=== PATIENT | male | born 1990 | race Caucasian/White ===

== ENCOUNTER 2017-05-18 23:47 | Emergency (ER) | payer BC ==
[~2017-05-18] VITALS: Ht 182.9 cm; Wt 60.0 kg
[2017-05-19 00:12] VITALS: BP 123/64; PULSE 94; RESP 20; TEMP 98.6; O2SAT 99
[2017-05-19 01:30] LABS: AUTOMATED NEUTROPHIL # 12.9 TH/MM3 (1.8-7.7); BASOPHIL % 0.2 % (0.0-2.0); EOSINOPHIL % 0.1 % (0.0-4.0); HEMATOCRIT 48.2 % (39.0-51.0); HEMO FLAGS DIFF FINAL; LYMPH % 9.3 % (9.0-44.0); LYMPHOCYTE # 1.4 TH/MM3 (1.0-4.8); MEAN CELL VOLUME 91.7 FL (80.0-100.0); MEAN CORPUSCULAR HEMOGLOBIN 30.9 PG (27.0-34.0); MEAN CORPUSCULAR HGB CONC 33.7 % (32.0-36.0); NEUT % 87.4 % (16.0-70.0); PLATELET COUNT 281 TH/MM3 (150-450); RED BLOOD COUNT 5.25 MIL/MM3 (4.50-5.90); RED CELL DISTRIBUTION WIDTH 13.4 % (11.6-17.2); WHITE BLOOD COUNT 14.8 TH/MM3 (4.0-11.0)
[2017-05-19 01:34] LABS: AMPHETAMINE, URINE NEG (NEG); BARBITURATES, URINE NEG (NEG); COCAINE, URINE NEG (NEG)
--- NOTE | 2017-05-19 01:40 | PD ---
HPI Chief Complaint: Psychiatric Symptoms Time Seen by Provider: 01:38 Travel History International Travel<30 days: No Contact w/Intl Traveler<30days: No Traveled to known affect area: No History of Present Illness HPI Patient comes emergency Department under Foster act by police for allegedly making suicidal statements and cutting himself. He states that his girlfriend was breaking up with him taking their kids with her, which made him upset causing him to cut himself. Patient denies any homicidal or suicidal ideations. Patient denies any history of suicide attempt. Patient denies any history of cutting himself before. Patient denies any pain with this. Denies anything making it better or worse. Reports his tetanus shot is up-to-date. Denies any medical concerns at this time. Denies any chest pain, shortness of breath, fevers, abdominal pain, or numbness tingling anywhere. PFSH Past Medical History ADHD: Yes Cardiovascular Problems: Yes (PRE SVT) Psychiatric: Yes (OCD) Immunizations Current: Yes Tetanus Vaccination: Unknown Past Surgical History Cardiac Surgery: Yes (PSVT (CRYOABLATION)) Social History Alcohol Use: Yes Tobacco Use: No Substance Use: Yes (MARIJUANA RARELY) Allergies-Medications (Allergen,Severity, Reaction): Coded Allergies: No Known Allergies (Unverified , 05/19/17) Reported Meds & Prescriptions Reported Meds & Active Scripts Active No Active Prescriptions or Reported Medications Review of Systems Except as stated in HPI: all other systems reviewed are Neg Physical Exam Narrative GENERAL: Well-developed, well nourished, in no acute distress, and non-ill appearing. SKIN: Multiple superficial nonrepairable self-inflicted wounds noted volar surface right forearm. HEAD: Atraumatic. Normocephalic. EYES: Pupils equal and round. EOMI. No scleral icterus. No injection or drainage. ENT: No nasal bleeding or discharge. Mucous membranes pink and moist. NECK: Trachea midline. Supple. No nuclear rigidity. CARDIOVASCULAR: Regular rate and rhythm. No murmur appreciated. RESPIRATORY: No accessory muscle use. No respiratory distress. Clear to auscultation. Breath sounds equal bilaterally. MUSCULOSKELETAL: No obvious deformities. No clubbing. No cyanosis. No edema. Full range of motion. NEUROLOGICAL: Awake and alert. No obvious cranial nerve deficits. Motor grossly within normal limits. Normal speech. PSYCHIATRIC: Appropriate mood and affect; insight and judgment normal. Data Data Last Documented VS Vital Signs Date Time Temp Pulse Resp B/P Pulse Ox O2 Delivery O2 Flow Rate FiO2 05/19/17 00:12 98.6 94 20 123/64 99 Room Air Orders Complete Blood Count With Diff (05/19/17 01:10) Comprehensive Metabolic Panel (05/19/17 01:10) Psych Screen (05/19/17 01:10) Drug Screen, Random Urine (05/19/17 01:10) Alcohol (Ethanol) (05/19/17 01:10) Salicylates (Aspirin) (05/19/17 01:10) Tylenol (Acetaminophen) (05/19/17 01:10) Labs Laboratory Tests Test 05/19/17 05/19/17 00:30 01:15 Urine Opiates Screen NEG Urine Barbiturates Screen NEG Urine Amphetamines Screen NEG Urine Benzodiazepines Screen NEG Urine Cocaine Screen NEG Urine Cannabinoids Screen POS White Blood Count 14.8 TH/MM3 Red Blood Count 5.25 MIL/MM3 Hemoglobin 16.2 GM/DL Hematocrit 48.2 % Mean Corpuscular Volume 91.7 FL Mean Corpuscular Hemoglobin 30.9 PG Mean Corpuscular Hemoglobin 33.7 % Concent Red Cell Distribution Width 13.4 % Platelet Count 281 TH/MM3 Mean Platelet Volume 7.4 FL Neutrophils (%) (Auto) 87.4 % Lymphocytes (%) (Auto) 9.3 % Monocytes (%) (Auto) 3.0 % Eosinophils (%) (Auto) 0.1 % Basophils (%) (Auto) 0.2 % Neutrophils # (Auto) 12.9 TH/MM3 Lymphocytes # (Auto) 1.4 TH/MM3 Monocytes # (Auto) 0.4 TH/MM3 Eosinophils # (Auto) 0.0 TH/MM3 Basophils # (Auto) 0.0 TH/MM3 CBC Comment DIFF FINAL Differential Comment Sodium Level 141 MEQ/L Potassium Level 4.1 MEQ/L Chloride Level 106 MEQ/L Carbon Dioxide Level 23.2 MEQ/L Anion Gap 12 MEQ/L Blood Urea Nitrogen 8 MG/DL Creatinine 0.72 MG/DL Estimat Glomerular Filtration 131 ML/MIN Rate Random Glucose 82 MG/DL Calcium Level 8.9 MG/DL Total Bilirubin 0.3 MG/DL Aspartate Amino Transf 19 U/L (AST/SGOT) Alanine Aminotransferase 23 U/L (ALT/SGPT) Alkaline Phosphatase 86 U/L Total Protein 7.1 GM/DL Albumin 4.2 GM/DL Salicylates Level LESS THAN 1.7 MG/DL Acetaminophen Level LESS THAN 2.0 MCG/ML Ethyl Alcohol Level 19 MG/DL MDM Medical Decision Making Medical Screen Exam Complete: Yes Emergency Medical Condition: Yes Differential Diagnosis Homicidal, suicidal, laceration, abrasion, contusion, other Narrative Course Patient was seen and examined. Labs were obtained and reviewed. Patient medically cleared for further treatment and evaluation by psych. Final disposition per psych. Diagnosis Primary Impression: Deliberate self-cutting Additional Impression: Medical clearance for psychiatric admission Scripts No Active Prescriptions or Reported Meds Condition: Stable Cas Carrera May 19, 2017 01:39
[2017-05-19 01:43] LABS: ACETAMINOPHEN LESS THAN 2.0 MCG/ML (10.0-30.0); ALT (GPT) 23 U/L (12-78); ANION GAP 12 MEQ/L (5-15); AST (GOT) 19 U/L (15-37); BICARBONATE 23.2 MEQ/L (21.0-32.0); BLOOD UREA NITROGEN 8 MG/DL (7-18); CHLORIDE 106 MEQ/L (98-107); GLOMERULAR FILTRATION RATE 131 ML/MIN (>89); POTASSIUM 4.1 MEQ/L (3.5-5.1); SODIUM (NA) 141 MEQ/L (136-145)
[2017-05-19 01:45] LABS: ALKALINE PHOSPHATASE 86 U/L (45-117); TOTAL BILIRUBIN ADULT 0.3 MG/DL (0.2-1.0)
[2017-05-19 08:15] VITALS: BP 130/77; PULSE 73; RESP 16; O2SAT 97
--- NOTE | 2017-05-19 10:40 | PD.PSY.CON ---
Provisional Diagnosis Admission Date Morrill I. Adjustment disorder with depressed mood, history of OCD Morrill II. Deferred Morrill III. No significant medical history History of Present Illness Service Psychiatry Consult Requested By Primary Care Physician Unknown HPI The patient is a 27-year-old man, domicile with his girlfriend in [place], unemployed, with psychiatric history of OCD, no psychiatric admissions, no current medications, history of self cutting, no suicide attempts or significant medical history, who comes emergency Department under Foster act by police for allegedly making suicidal statements and cutting himself. He states that his girlfriend was breaking up with him taking their kids with her, which made him upset causing him to cut himself. Patient denies any homicidal or suicidal ideations. On psychiatric evaluation today patient is calm, cooperative and a good spirit. Patient says that yesterday he was frustrated and upset with his girlfriend because his giving him. He might say that he wanted to cut himself, but he never made a suicidal statement. He says that he was just trying to manipulate and to project the anger and his girlfriend. At this moment the patient denies anhedonia, he denies hopelessness , denies depression, he denies suicidal and homicidal ideation, he denies visual and auditory hallucinations. Patient does report occasional use of alcohol and marijuana. Review of Systems Constitutional: DENIES: Diaphoretic episodes, Fatigue, Fever, Weight gain, Weight loss, Chills, Dizziness, Change in appetite, Night Sweats Endocrine: DENIES: Heat/cold intolerance, Polydipsia, Polyuria, Polyphagia Eyes: DENIES: Blurred vision, Diplopia, Eye inflammation, Eye pain, Vision loss , Photosensitivity, Double Vision Ears, nose, mouth, throat: DENIES: Tinnitus, Hearing loss, Vertigo, Nasal discharge, Oral lesions, Throat pain, Hoarseness, Ear Pain, Running Nose, Epistaxis, Sinus Pain, Toothache, Odynophagia Respiratory: DENIES: Apneas, Cough, Snoring, Wheezing, Hemoptysis, Sputum production, Shortness of breath Cardiovascular: DENIES: Chest pain, Palpitations, Syncope, Dyspnea on Exertion , PND, Lower Extremity Edema, Orthopnea, Claudication Gastrointestinal: DENIES: Abdominal pain, Black stools, Bloody stools, Constipation, Diarrhea, Nausea, Vomiting, Difficulty Swallowing, Anorexia Genitourinary: DENIES: Sexual dysfunction, Urinary frequency, Urinary incontinence, Urgency, Hematuria, Dysuria, Nocturia, Penile Discharge, Testicular Pain, Testicular Swelling Musculoskeletal: DENIES: Joint pain, Muscle aches, Stiffness, Joint Swelling, Back pain, Neck pain Immunologic/allergic: DENIES: Eczema, Urticaria Neurologic: DENIES: Abnormal gait, Headache, Localized weakness, Paresthesias, Seizures, Speech Problems, Tremor, Poor Balance Psychiatric: DENIES: Anxiety, Confusion, Mood changes, Depression, Hallucinations, Agitation, Suicidal Ideation, Homicidal Ideation, Delusions Past Family Social History Coded Allergies: No Known Allergies (Unverified , 05/19/17) No Active Prescriptions or Reported Meds Family History He reports that his mother has depression Social History Patient was born and raised in [place], he lives with his girlfriend in [facility] , he has 2 kids his unemployed, his level of education is high school Patient's Strengths (min. 2) Employed Physical Exam No tremors, no EPS, no withdrawal Vital Signs Vital Signs Date Time Temp Pulse Resp B/P Pulse Ox O2 Delivery O2 Flow Rate FiO2 05/19/17 08:15 73 16 130/77 97 Room Air 05/19/17 00:12 98.6 Lab Results Labs Laboratory Tests Test 05/19/17 05/19/17 00:30 01:15 Urine Opiates Screen NEG Urine Barbiturates Screen NEG Urine Amphetamines Screen NEG Urine Benzodiazepines Screen NEG Urine Cocaine Screen NEG Urine Cannabinoids Screen POS White Blood Count 14.8 TH/MM3 Red Blood Count 5.25 MIL/MM3 Hemoglobin 16.2 GM/DL Hematocrit 48.2 % Mean Corpuscular Volume 91.7 FL Mean Corpuscular Hemoglobin 30.9 PG Mean Corpuscular Hemoglobin 33.7 % Concent Red Cell Distribution Width 13.4 % Platelet Count 281 TH/MM3 Mean Platelet Volume 7.4 FL Neutrophils (%) (Auto) 87.4 % Lymphocytes (%) (Auto) 9.3 % Monocytes (%) (Auto) 3.0 % Eosinophils (%) (Auto) 0.1 % Basophils (%) (Auto) 0.2 % Neutrophils # (Auto) 12.9 TH/MM3 Lymphocytes # (Auto) 1.4 TH/MM3 Monocytes # (Auto) 0.4 TH/MM3 Eosinophils # (Auto) 0.0 TH/MM3 Basophils # (Auto) 0.0 TH/MM3 CBC Comment DIFF FINAL Differential Comment Sodium Level 141 MEQ/L Potassium Level 4.1 MEQ/L Chloride Level 106 MEQ/L Carbon Dioxide Level 23.2 MEQ/L Anion Gap 12 MEQ/L Blood Urea Nitrogen 8 MG/DL Creatinine 0.72 MG/DL Estimat Glomerular Filtration 131 ML/MIN Rate Random Glucose 82 MG/DL Calcium Level 8.9 MG/DL Total Bilirubin 0.3 MG/DL Aspartate Amino Transf 19 U/L (AST/SGOT) Alanine Aminotransferase 23 U/L (ALT/SGPT) Alkaline Phosphatase 86 U/L Total Protein 7.1 GM/DL Albumin 4.2 GM/DL Salicylates Level LESS THAN 1.7 MG/DL Acetaminophen Level LESS THAN 2.0 MCG/ML Ethyl Alcohol Level 19 MG/DL Mental Status Examination Appearance young man, age appearing, good hygiene, calm and cooperative Speech: Unremarkable Orientation: x3 Memory: Unremarkable Thought Process: Logical Thought Content: Unremarkable Hallucination Type: None Suicidal Ideation: No Previous Suicide Attempts: No Homicidal Ideation: No Previous Homicide Attempts: No Judgment: WNL Affect: Good Mood: Appropriate Motor Activity: Normal gait Assessment & Plan Problem List: (1) Adjustment disorder with depressed mood Assessment & Plan: On psychiatric evaluation today patient does not present any evidence of depression, anxiety, tor or psychosis. Patient denies suicidal and homicidal ideation, he denies visual and auditory hallucinations. Recent self cutting statement to his girlfriend in the context of frustration and recent breakup as per patient was done with the purpose of manipulation and projecting anger. Patient has a history of self cutting behavior which seems to be consistent with underlying personality pathology. No admission indicated at this moment. Support, motivation psycho education provided. Foster act will be lifted.. ICD Code: F43.21 Assessment & Plan Estimated LOS: Herve Shipley MD May 19, 2017 10:40
== END 2017-05-19 10:58 | disposition home or self-care (01) ==
LOC: NEPD 23:47
DX: S51.811A Laceration without foreign body of right forearm, initial encounter (principal); X78.9XXA Intentional self-harm by unspecified sharp object, initial encounter
CPT/HCPCS: 80053; 80307; 85025; 99284

== ENCOUNTER 2018-04-16 15:51 | Inpatient (IN) | payer SELFPAY ==
[~2018-04-16] VITALS: Ht 182.9 cm; Wt 67.0 kg
[2018-04-16 16:00] VITALS: BP 123/58; PULSE 103; RESP 20; TEMP 99.9; O2SAT 98
[2018-04-16] MEDS ORDERED: PIPERACIL-TAZO 4.5 GM PREMIX 100 ML IV STA (16:24)
[2018-04-16] MEDS ORDERED: VANCOMYCIN INJ 1,000 MG in SODIUM CHLOR 0.9% 250 ML INJ 250 ML IV STA (16:24)
[2018-04-16] MEDS ORDERED: SODIUM CHLOR 0.9% 1000 ML INJ 1,000 ML IV ONE ×2 (16:24)
[2018-04-16] MEDS ORDERED: ACETAMINOPHEN 325 MG TAB PO ONE (16:30)
--- NOTE | 2018-04-16 16:33 | PD ---
HPI Chief Complaint: Skin Problem Time Seen by Provider: 16:16 Travel History International Travel<30 days: No Contact w/Intl Traveler<30days: No Traveled to known affect area: No History of Present Illness HPI The patient is a 27-year-old male who presents to the emergency department via private vehicle for right hand swelling. 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 The patient does note multiple sores of the extensor surface of the hand over the MCPs as well as the base of the right thumb. He now notes increased swelling to the right hand with erythema no streaks of the right upper extremity to the right axilla. He does complain of swelling under the right axilla and over the lateral aspect of the right neck. He does note subjective fever. He denies any history of MRSA, IV drug use, HIV, or diabetes. Symptoms are moderate. There are no current alleviating factors. The patient cannot recall his last tetanus shot. The patient is left-hand dominant. PFSH Past Medical History ADHD: Yes Cardiovascular Problems: Yes (PRE SVT) Psychiatric: Yes (OCD) Immunizations Current: Yes Past Surgical History Narrative Surgical Cardiac ablation, removal of testicular appendix, tympanostomy tubes Cardiac Surgery: Yes (PSVT (CRYOABLATION)) Social History Alcohol Use: Yes Tobacco Use: No Substance Use: Yes (MARIJUANA, KRATOM) Allergies-Medications (Allergen,Severity, Reaction): Coded Allergies: No Known Allergies (Verified Adverse Reaction, Unknown, 04/16/18) Reported Meds & Prescriptions Reported Meds & Active Scripts Active No Active Prescriptions or Reported Medications Review of Systems Except as stated in HPI: all other systems reviewed are Neg General / Constitutional: Positive: Fever HENT: Positive: Neck Pain Cardiovascular: No: Chest Pain or Discomfort Respiratory: No: Shortness of Breath Gastrointestinal: No: Nausea, Vomiting, Abdominal Pain Genitourinary: No: Dysuria Musculoskeletal: Positive: Limited ROM, Edema, Pain Skin: Positive Other (As noted in the history of present illness) Neurologic: No: Paresthesia, Sensory Disturbance Physical Exam Narrative GENERAL: Awake, alert, pleasant 27-year-old male who appears his stated age and is in no acute respiratory distress. SKIN: Focused skin assessment warm/dry. Multiple open skin wounds on the extensor surface of the right hand of the MCP. HEAD: Atraumatic. Normocephalic. EYES: Pupils equal and round. No scleral icterus. No injection or drainage. ENT: No nasal bleeding or discharge. Mucous membranes pink and moist. NECK: Trachea midline. No JVD. Lymphadenopathy noted behind the right sternocleidomastoid which is tender to palpation. CARDIOVASCULAR: Regular, tachycardic with a heart rate 105. RESPIRATORY: No accessory muscle use. Clear to auscultation. Breath sounds equal bilaterally. GASTROINTESTINAL: Abdomen soft, non-tender, nondistended. Hepatic and splenic margins not palpable. MUSCULOSKELETAL: The right hand is swollen compared to the left. The patient does have multiple skin lesions on extensor surface of the right hand and the base of the right thumb with erythema, there is lymphadenitis noted of the right extremity to the axilla. There is right epitrochlear lymphadenopathy and right axillary lymphadenopathy noted and palpated. Positive right radial pulse. Limited range of motion of the right hand secondary to edema and pain. NEUROLOGICAL: Awake and alert. No obvious cranial nerve deficits. Motor grossly within normal limits. Normal speech. PSYCHIATRIC: Appropriate mood and affect; insight and judgment normal. Data Data Last Documented VS Vital Signs Date Time Temp Pulse Resp B/P (MAP) Pulse Ox O2 Delivery O2 Flow Rate FiO2 04/16/18 16:00 99.9 103 20 123/58 (79) 98 Orders Orders Sepsis Workup Initiated (04/16/18 ) Complete Blood Count With Diff (04/16/18 16:24) Comprehensive Metabolic Panel (04/16/18 16:24) Lactic Acid Sepsis Protocol (04/16/18 16:24) Urinalysis - C+S If Indicated (04/16/18 16:24) Blood Culture (04/16/18 16:24) Blood Glucose (04/16/18 16:24) Ecg Monitoring (04/16/18 16:24) Iv Access Insert/Monitor (04/16/18 16:24) Oximetry (04/16/18 16:24) Oxygen Administration (04/16/18 16:24) Acetaminophen (Tylenol) (04/16/18 16:30) Piperacil-Tazo 4.5 Gm Premix (Zosyn 4.5 (04/16/18 16:24) Vancomycin Inj (Vancomycin Inj) (04/16/18 16:24) Sodium Chlor 0.9% 1000 Ml Inj (Ns 1000 M (04/16/18 16:24) Sodium Chlor 0.9% 1000 Ml Inj (Ns 1000 M (04/16/18 16:24) MDM Medical Decision Making Medical Screen Exam Complete: Yes Emergency Medical Condition: Yes Medical Record Reviewed: Yes Differential Diagnosis Differential diagnosis includes lymphadenitis, lymphangitis, cellulitis, infected wound, bacteremia, septicemia, abscess, cellulitis. Narrative Course IV was established, labs are drawn and sent, and the patient was placed on cardiac telemetry monitoring and continuous pulse oximetry monitoring. Blood cultures were sent to lab. CBC and lactic acid were sent to lab. The patient was then administered Zosyn and vancomycin. The patient was administered 2 L of IV fluids. It appears the patient has infected wounds to the right hand with cellulitis and secondary lymphangitis/lymphadenitis. The patient was signed out to the oncoming physician at 5 PM. Diagnosis Primary Impression: Cellulitis Qualified Codes: L03.113 - Cellulitis of right upper limb Additional Impression: Lymphadenitis Admitting Information Admitting Physician Requests: Admit Scripts No Active Prescriptions or Reported Meds Condition: Stable Edgar Valverde MD Apr 16, 2018 16:33
[2018-04-16 16:45] VITALS: BP 120/56; PULSE 89; RESP 18; O2SAT 100
[2018-04-16 17:30] LABS: AUTOMATED NEUTROPHIL # 16.3 TH/MM3 (1.8-7.7); BASOPHIL % 0.1 % (0.0-2.0); HEMATOCRIT 43.1 % (39.0-51.0); HEMOGLOBIN 14.3 GM/DL (13.0-17.0); LYMPH % 3.3 % (9.0-44.0); LYMPHOCYTE # 0.6 TH/MM3 (1.0-4.8); MEAN CELL VOLUME 92.5 FL (80.0-100.0); MEAN CORPUSCULAR HEMOGLOBIN 30.7 PG (27.0-34.0); MEAN CORPUSCULAR HGB CONC 33.2 % (32.0-36.0); MEAN PLATELET VOLUME 7.8 FL (7.0-11.0); MONO % 7.9 % (0.0-8.0); MONOCYTE # 1.4 TH/MM3 (0-0.9); NEUT % 88.7 % (16.0-70.0); PLATELET COUNT 199 TH/MM3 (150-450); RED BLOOD COUNT 4.66 MIL/MM3 (4.50-5.90); RED CELL DISTRIBUTION WIDTH 14.1 % (11.6-17.2); WHITE BLOOD COUNT 18.3 TH/MM3 (4.0-11.0)
[2018-04-16 17:46] LABS: ALBUMIN 3.9 GM/DL (3.4-5.0); ALT (GPT) 23 U/L (12-78); AST (GOT) 18 U/L (15-37); BICARBONATE 22.6 MEQ/L (21.0-32.0); BLOOD UREA NITROGEN 7 MG/DL (7-18); CALCIUM 8.9 MG/DL (8.5-10.1); CHLORIDE 103 MEQ/L (98-107); GLOMERULAR FILTRATION RATE 116 ML/MIN (>89); GLUCOSE,RANDOM 98 MG/DL (74-106); SODIUM (NA) 137 MEQ/L (136-145)
[2018-04-16 17:49] LABS: ALKALINE PHOSPHATASE 104 U/L (45-117); TOTAL BILIRUBIN ADULT 0.5 MG/DL (0.2-1.0)
[2018-04-16 18:10] LABS: BACTERIA, URINE RARE /hpf; BILIRUBIN, URINE NEG (NEG); BLOOD, URINE NEG (NEG); GLUCOSE,URINE NEG (NEG); HYALINE CAST, URINE 4 /lpf (RARE); KETONE, URINE TRACE mg/dL (NEG); MUCUS URINE FEW /lpf (OCC); NITRITE,URINE NEG (NEG); URINE COLOR YELLOW (YELLW/STRAW); URINE LEUKOCYTE ESTERASE NEG (NEG)
[2018-04-16 18:16] VITALS: PULSE 89; RESP 16; TEMP 99.4; O2SAT 98
[2018-04-16] MEDS ORDERED: SENNOSIDES 8.6 MG TAB PO PRN (18:45)
[2018-04-16] MEDS ORDERED: MAGNESIUM HYDROXIDE SUSP 30 ML CUP PO PRN (18:45)
[2018-04-16] MEDS ORDERED: BISACODYL 10 MG SUPP RECTAL PRN (18:45)
[2018-04-16] MEDS ORDERED: NALOXONE HCL 0.4 MG/ML AMP IV PUSH PRN (18:45)
[2018-04-16] MEDS ORDERED: Vancomycin Consult Pharmacy 1 EA OTHER SCH (18:45)
[2018-04-16] MEDS ORDERED: LACTULOSE SYRUP 20 GM/30 ML CUP PO PRN (18:45)
[2018-04-16] MEDS ORDERED: SODIUM CHLORIDE 0.9% FLUSH 10 ML FLUSH IV FLUSH PRN (18:45)
--- NOTE | 2018-04-16 19:24 | PD ---
Data Data Last Documented VS Vital Signs Date Time Temp Pulse Resp B/P (MAP) Pulse Ox O2 Delivery O2 Flow Rate FiO2 04/16/18 18:16 99.4 89 16 98 Room Air Orders Orders Sepsis Workup Initiated (04/16/18 ) Complete Blood Count With Diff (04/16/18 16:24) Comprehensive Metabolic Panel (04/16/18 16:24) Lactic Acid Sepsis Protocol (04/16/18 16:24) Urinalysis - C+S If Indicated (04/16/18 16:24) Blood Culture (04/16/18 16:24) Blood Glucose (04/16/18 16:24) Ecg Monitoring (04/16/18 16:24) Iv Access Insert/Monitor (04/16/18 16:24) Oximetry (04/16/18 16:24) Oxygen Administration (04/16/18 16:24) Acetaminophen (Tylenol) (04/16/18 16:30) Piperacil-Tazo 4.5 Gm Premix (Zosyn 4.5 (04/16/18 16:24) Vancomycin Inj (Vancomycin Inj) (04/16/18 16:24) Sodium Chlor 0.9% 1000 Ml Inj (Ns 1000 M (04/16/18 16:24) Sodium Chlor 0.9% 1000 Ml Inj (Ns 1000 M (04/16/18 16:24) Urine Culture (04/16/18 17:00) Admit Order (Ed Use Only) (04/16/18 ) Admit To Inpatient (04/16/18 ) Vital Signs (Adult) Q4H (04/16/18 18:40) Activity Oob Ad Francheska (04/16/18 18:40) Diet Npo (04/16/18 Dinner) Sodium Chlor 0.9% 1000 Ml Inj (Ns 1000 M (04/16/18 18:40) Sodium Chloride 0.9% Flush (Ns Flush) (04/16/18 18:45) Sodium Chloride 0.9% Flush (Ns Flush) (04/16/18 21:00) Comprehensive Metabolic Panel (04/17/18 06:00) Complete Blood Count With Diff (04/17/18 06:00) Scd Bilateral/Knee High TORIBIO.BID (04/16/18 18:40) Naloxone Inj (Narcan Inj) (04/16/18 18:45) Magnesium Hydroxide Liq (Milk Of Magnesi (04/16/18 18:45) Sennosides (Senokot) (04/16/18 18:45) Bisacodyl Supp (Dulcolax Supp) (04/16/18 18:45) Lactulose Liq (Lactulose Liq) (04/16/18 18:45) Inpatient Certification (04/16/18 ) Vancomycin Consult Pharmacy (Vancomycin (04/16/18 18:45) Piperacil-Tazo 3.375 Gm Premix (Zosyn 3. (04/16/18 18:45) Consult Infectious Disease (04/16/18 ) Drug Screen, Random Urine (04/16/18 18:42) Labs Laboratory Tests Test 04/16/18 17:00 White Blood Count 18.3 TH/MM3 Red Blood Count 4.66 MIL/MM3 Hemoglobin 14.3 GM/DL Hematocrit 43.1 % Mean Corpuscular Volume 92.5 FL Mean Corpuscular Hemoglobin 30.7 PG Mean Corpuscular Hemoglobin Concent 33.2 % Red Cell Distribution Width 14.1 % Platelet Count 199 TH/MM3 Mean Platelet Volume 7.8 FL Neutrophils (%) (Auto) 88.7 % Lymphocytes (%) (Auto) 3.3 % Monocytes (%) (Auto) 7.9 % Eosinophils (%) (Auto) 0.0 % Basophils (%) (Auto) 0.1 % Neutrophils # (Auto) 16.3 TH/MM3 Lymphocytes # (Auto) 0.6 TH/MM3 Monocytes # (Auto) 1.4 TH/MM3 Eosinophils # (Auto) 0.0 TH/MM3 Basophils # (Auto) 0.0 TH/MM3 CBC Comment DIFF FINAL Differential Comment Urine Color YELLOW Urine Turbidity CLEAR Urine pH 6.0 Urine Specific Prosser 1.016 Urine Protein NEG mg/dL Urine Glucose (UA) NEG mg/dL Urine Ketones TRACE mg/dL Urine Occult Blood NEG Urine Nitrite NEG Urine Bilirubin NEG Urine Urobilinogen 2.0 mg/dL Urine Leukocyte Esterase NEG Urine RBC 3 /hpf Urine WBC 1 /hpf Urine Bacteria RARE /hpf Urine Hyaline Casts 4 /lpf Urine Mucus FEW /lpf Microscopic Urinalysis Comment CATH-CULTURE IND Blood Urea Nitrogen 7 MG/DL Creatinine 0.80 MG/DL Random Glucose 98 MG/DL Total Protein 7.0 GM/DL Albumin 3.9 GM/DL Calcium Level 8.9 MG/DL Alkaline Phosphatase 104 U/L Aspartate Amino Transf (AST/SGOT) 18 U/L Alanine Aminotransferase (ALT/SGPT) 23 U/L Total Bilirubin 0.5 MG/DL Sodium Level 137 MEQ/L Potassium Level 3.4 MEQ/L Chloride Level 103 MEQ/L Carbon Dioxide Level 22.6 MEQ/L Anion Gap 11 MEQ/L Estimat Glomerular Filtration Rate 116 ML/MIN Lactic Acid Level 1.3 mmol/L MDM Supervised Visit with NIKOLE: No Narrative Course 27-year-old man with infection the hand with lymphangitis spreading up all the way to the axilla with lymphadenitis associated. Patient with tachycardia meets criteria for sepsis. Will be admitted for IV antibiotics. Diagnosis Primary Impression: Cellulitis Qualified Codes: L03.113 - Cellulitis of right upper limb Additional Impression: Lymphadenitis Scripts No Active Prescriptions or Reported Meds Condition: Stable Antony Mercer MD Apr 16, 2018 19:24
--- NOTE | 2018-04-16 19:56 | HHI.HP ---
[facility] No Primary Care Physician Admission Diagnosis sepsis, cellulitis Diagnoses: Travel History International Travel<30 Days: No Contact w/Intl Traveler <30 Da: No Traveled to Known Affected Are: No History of Present Illness 27-year-old male with no significant past medical history presents the emergency department for evaluation of swelling of his right hand. The patient reports that approximately 3 days ago he burned himself on the oven at work. He states that since that time his hand has become more red and swollen and now has red streaks going up his arm towards his axilla. He endorses subjective, severe fever/chills. No chest pain or shortness of breath. No cough. No abdominal pain. No nausea/vomiting/diarrhea. Review of Systems Except as stated in HPI: all other systems reviewed are Neg Past Family Social History Past Medical History None Past Surgical History Cardiac ablation for unspecified tachycardia Reported Medications Reported Meds & Active Scripts Active No Active Prescriptions or Reported Medications Allergies: Coded Allergies: No Known Allergies (Verified Allergy, Unknown, 04/16/18) Family History Negative for CAD/DM Social History Smokes approximately 1 pack per day. Occasional alcohol. Positive marijuana. Denies all other illicit drugs. Physical Exam Vital Signs Vital Signs Date Time Temp Pulse Resp B/P (MAP) Pulse Ox O2 Delivery O2 Flow Rate FiO2 04/16/18 18:16 99.4 89 16 98 Room Air 04/16/18 16:45 100 Room Air 04/16/18 16:45 89 18 120/56 (77) 100 Room Air 04/16/18 16:45 89 18 120/56 (77) 100 Room Air 04/16/18 16:00 99.9 103 20 123/58 (79) 98 Physical Exam GENERAL: male lying in bed SKIN: Significant edema and erythema of the right hand worse on the dorsal aspect. 3 areas of first-degree burn on the knuckles. Lymphangitis up the arm with axillary lymphadenopathy. HEAD: Atraumatic. Normocephalic. No temporal or scalp tenderness. EYES: Pupils equal round and reactive. Extraocular motions intact. No scleral icterus. No injection or drainage. ENT: Nose without bleeding, purulent drainage or septal hematoma. Throat without erythema, tonsillar hypertrophy or exudate. Uvula midline. Airway patent. NECK: Trachea midline. No JVD or lymphadenopathy. Supple, nontender, no meningeal signs. CARDIOVASCULAR: Regular rate and rhythm without murmurs, gallops, or rubs. RESPIRATORY: Clear to auscultation. Breath sounds equal bilaterally. No wheezes , rales, or rhonchi. GASTROINTESTINAL: Abdomen soft, non-tender, nondistended. No hepato-splenomegaly , or palpable masses. No guarding. MUSCULOSKELETAL: Extremities without clubbing, cyanosis, or edema. No joint tenderness, effusion, or edema noted. No calf tenderness. NEUROLOGICAL: Awake and alert. Cranial nerves II through XII intact. Motor and sensory grossly within normal limits. Normal speech. Laboratory Laboratory Tests Test 04/16/18 17:00 White Blood Count 18.3 Red Blood Count 4.66 Hemoglobin 14.3 Hematocrit 43.1 Mean Corpuscular Volume 92.5 Mean Corpuscular Hemoglobin 30.7 Mean Corpuscular Hemoglobin Concent 33.2 Red Cell Distribution Width 14.1 Platelet Count 199 Mean Platelet Volume 7.8 Neutrophils (%) (Auto) 88.7 Lymphocytes (%) (Auto) 3.3 Monocytes (%) (Auto) 7.9 Eosinophils (%) (Auto) 0.0 Basophils (%) (Auto) 0.1 Neutrophils # (Auto) 16.3 Lymphocytes # (Auto) 0.6 Monocytes # (Auto) 1.4 Eosinophils # (Auto) 0.0 Basophils # (Auto) 0.0 CBC Comment DIFF FINAL Differential Comment Urine Color YELLOW Urine Turbidity CLEAR Urine pH 6.0 Urine Specific [place] 1.016 Urine Protein NEG Urine Glucose (UA) NEG Urine Ketones TRACE Urine Occult Blood NEG Urine Nitrite NEG Urine Bilirubin NEG Urine Urobilinogen 2.0 Urine Leukocyte Esterase NEG Urine RBC 3 Urine WBC 1 Urine Bacteria RARE Urine Hyaline Casts 4 Urine Mucus FEW Microscopic Urinalysis Comment CATH-CULTURE IND Blood Urea Nitrogen 7 Creatinine 0.80 Random Glucose 98 Total Protein 7.0 Albumin 3.9 Calcium Level 8.9 Alkaline Phosphatase 104 Aspartate Amino Transf (AST/SGOT) 18 Alanine Aminotransferase (ALT/SGPT) 23 Total Bilirubin 0.5 Sodium Level 137 Potassium Level 3.4 Chloride Level 103 Carbon Dioxide Level 22.6 Anion Gap 11 Estimat Glomerular Filtration Rate 116 Lactic Acid Level 1.3 Date/Time Source Procedure Growth Status 04/16/18 17:00 Blood Peripheral Aerobic Blood Culture Pending Received 04/16/18 17:00 Blood Peripheral Anaerobic Blood Culture Pending Received 04/16/18 17:00 Urine Catheterized Urine Urine Culture Pending Received Result Diagram: 04/16/18 1700 04/16/18 1700 Caprini VTE Risk Assessment Caprini VTE Risk Assessment: No/Low Risk (score <= 1) Caprini Risk Assessment Model Point Value = 1 Point Value = 2 Point Value = 3 Point Value = 5 Age 41-60 Minor surgery BMI > 25 kg/m2 Swollen legs Varicose veins or History of unexplained or recurrent spontaneous Oral contraceptives or hormone replacement Sepsis (< 1 month) Serious lung disease, including pneumonia (< 1 month) Abnormal pulmonary function Acute myocardial infarction Congestive heart failure (< 1 month) History of inflammatory bowel disease Medical patient at bed rest Age 61-74 Arthroscopic surgery Major open surgery (> 45 min) Laparoscopic surgery (> 45 min) Malignancy Confined to bed (> 72 hours) Immobilizing plaster cast Central venous access Age >= 75 History of VTE Family history of VTE Factor V Leiden Prothrombin [id number] Lupus anticoagulant Anticardiolipin antibodies Elevated serum homocysteine Heparin-induced thrombocytopenia Other congenital or acquired thrombophilia Stroke (< 1 month) Elective arthroplasty Hip, pelvis, or leg fracture Acute spinal cord injury (< 1 month) Prophylaxis Regimen Total Risk Factor Score Risk Level Prophylaxis Regimen 0-1 Low Early ambulation 2 Moderate Order ONE of the following: *Sequential Compression Device (SCD) *Heparin 5000 units SQ BID 3-4 Higher Order ONE of the following medications: *Heparin 5000 units SQ TID *Enoxaparin/Lovenox 40 mg SQ daily (WT < 150 kg, CrCl > 30 mL/min) *Enoxaparin/Lovenox 30 mg SQ daily (WT < 150 kg, CrCl > 10-29 mL/min) *Enoxaparin/Lovenox 30 mg SQ BID (WT < 150 kg, CrCl > 30 mL/min) AND/OR *Sequential Compression Device (SCD) 5 or more Highest Order ONE of the following medications: *Heparin 5000 units SQ TID (Preferred with Epidurals) *Enoxaparin/Lovenox 40 mg SQ daily (WT < 150 kg, CrCl > 30 mL/min) *Enoxaparin/Lovenox 30 mg SQ daily (WT < 150 kg, CrCl > 10-29 mL/min) *Enoxaparin/Lovenox 30 mg SQ BID (WT < 150 kg, CrCl > 30 mL/min) AND *Sequential Compression Device (SCD) Assessment and Plan Assessment and Plan Assessment/plan: 1. Cellulitis/lymphangitis/sepsis Blood cultures pending Vancomycin/Zosyn Infectious disease consulted, appreciate recommendations 2. Hypokalemia Patient with mild hypokalemia Status post p.o. supplementation Monitor BMP FEN Regular diet Electrolytes: As above NS at 100 cc/hour Physician Certification 2 Midnight Certification Type: Admission for Inpatient Services Order for Inpatient Services The services are ordered in accordance with Medicare regulations or non- Medicare payer requirements, as applicable. In the case of services not specified as inpatient-only, they are appropriately provided as inpatient services in accordance with the 2-midnight benchmark. Estimated LOS (days): 2 2 days is the estimated time the patient will need to remain in the hospital, assuming treatment plan goals are met and no additional complications. Post-Hospital Plan: Not yet determined Hafsa Hussein MD Apr 16, 2018 19:56
[2018-04-16] MEDS ORDERED: POTASSIUM CHLORIDE 20 MEQ CONTROLLED RELEASE TAB PO ONE (20:00)
[2018-04-16 20:40] VITALS: BP 131/65; PULSE 88; RESP 18; TEMP 100; O2SAT 97
[2018-04-16] MEDS: oxyCODONE/ACETAMINOPHEN 5 MG/325 MG TAB PO PRN (23:16)
[2018-04-16] MEDS: PIPERACIL-TAZO 3.375 GM PREMIX 50 ML IV SCH (23:22)
[2018-04-16] MEDS: SODIUM CHLOR 0.9% 1000 ML INJ 1,000 ML IV SCH (23:22)
[2018-04-16] MEDS: SODIUM CHLORIDE 0.9% FLUSH 10 ML FLUSH IV FLUSH SCH (23:22)
[2018-04-17] VITALS: BP 142/60; PULSE 92; RESP 19; TEMP 99.1; O2SAT 98
[2018-04-17] MEDS ORDERED: VANCOMYCIN 1,000 MG/NS 250 ML IV ONE ×4 (01:00→09:00)
[2018-04-17 04:00] VITALS: BP 127/70; PULSE 64; RESP 16; TEMP 98; O2SAT 97
[2018-04-17] MEDS: SODIUM CHLOR 0.9% 1000 ML INJ 1,000 ML IV SCH ×3 (04:40→12:57)
[2018-04-17] MEDS: PIPERACIL-TAZO 3.375 GM PREMIX 50 ML IV SCH ×4 (05:20→21:45)
[2018-04-17 07:49] VITALS: BP 112/59; PULSE 73; RESP 16; TEMP 98.6; O2SAT 98
[2018-04-17] MEDS: oxyCODONE/ACETAMINOPHEN 5 MG/325 MG TAB PO PRN (07:51)
[2018-04-17] MEDS: SODIUM CHLORIDE 0.9% FLUSH 10 ML FLUSH IV FLUSH SCH ×3 (07:52→20:30)
[2018-04-17 08:20] LABS: BASOPHIL % 0.2 % (0.0-2.0); EOSINOPHIL # 0.1 TH/MM3 (0-0.4); EOSINOPHIL % 0.7 % (0.0-4.0); HEMATOCRIT 40.9 % (39.0-51.0); HEMOGLOBIN 13.4 GM/DL (13.0-17.0); LYMPH % 7.6 % (9.0-44.0); MEAN CELL VOLUME 91.8 FL (80.0-100.0); MEAN CORPUSCULAR HEMOGLOBIN 30.2 PG (27.0-34.0); MEAN CORPUSCULAR HGB CONC 32.9 % (32.0-36.0); MEAN PLATELET VOLUME 8.2 FL (7.0-11.0); MONO % 8.2 % (0.0-8.0); MONOCYTE # 1.1 TH/MM3 (0-0.9); NEUT % 83.3 % (16.0-70.0); PLATELET COUNT 185 TH/MM3 (150-450); RED BLOOD COUNT 4.45 MIL/MM3 (4.50-5.90); RED CELL DISTRIBUTION WIDTH 14.1 % (11.6-17.2); WHITE BLOOD COUNT 13.2 TH/MM3 (4.0-11.0)
[2018-04-17 08:51] LABS: ALBUMIN 3.1 GM/DL (3.4-5.0); AST (GOT) 22 U/L (15-37); BICARBONATE 19.6 MEQ/L (21.0-32.0); BLOOD UREA NITROGEN 6 MG/DL (7-18); CALCIUM 8.6 MG/DL (8.5-10.1); CHLORIDE 111 MEQ/L (98-107); CREATININE 0.62 MG/DL (0.60-1.30); GLOMERULAR FILTRATION RATE 156 ML/MIN (>89); GLUCOSE,RANDOM 100 MG/DL (74-106); SODIUM (NA) 141 MEQ/L (136-145)
[2018-04-17 08:54] LABS: ALKALINE PHOSPHATASE 115 U/L (45-117); ALT (GPT) 42 U/L (12-78); TOTAL BILIRUBIN ADULT 0.8 MG/DL (0.2-1.0); TOTAL PROTEIN 5.9 GM/DL (6.4-8.2)
--- NOTE | 2018-04-17 12:09 | HHI.PR ---
Subjective Remarks 27-year-old male with no significant past medical history presents the emergency department for evaluation of swelling of his right hand. The patient reports that approximately 3 days ago he burned himself on the oven at work. He states that since that time his hand has become more red and swollen and now has red streaks going up his arm towards his axilla. He endorses subjective, severe fever/chills. No chest pain or shortness of breath. No cough. No abdominal pain. No nausea/vomiting/diarrhea. 620 COMPLAINS OF PAIN AND SWELLING IN RIGHT HAND DW RN AND PT ID CONSULT MAY NEED HAND SURGERY CONSULT PAIN CONTROL Objective Vitals Vital Signs Date Time Temp Pulse Resp B/P (MAP) Pulse Ox O2 Delivery O2 Flow Rate FiO2 04/17/18 07:49 98.6 73 16 112/59 (76) 98 04/17/18 04:00 98.0 64 16 127/70 (89) 97 04/17/18 00:16 18 04/17/18 00:00 99.1 92 19 142/60 (87) 98 04/16/18 20:40 100.0 88 18 131/65 (87) 97 04/16/18 20:31 04/16/18 18:16 99.4 89 16 98 Room Air 04/16/18 16:45 100 Room Air 04/16/18 16:45 89 18 120/56 (77) 100 Room Air 04/16/18 16:45 89 18 120/56 (77) 100 Room Air 04/16/18 16:00 99.9 103 20 123/58 (79) 98 I/O 04/16/18 04/16/18 04/16/18 04/17/18 04/17/18 04/17/18 07:00 15:00 23:00 07:00 15:00 23:00 Intake Total 2350 ml 420 ml Output Total 300 ml Balance 2350 ml 120 ml Intake Oral 420 ml IV Total 2350 ml Output Urine Total 300 ml # Bowel Movements 1 Result Diagram: 04/17/18 0710 04/17/18 0710 Other Results Laboratory Tests Test 04/16/18 17:00 04/17/18 07:10 White Blood Count 18.3 TH/MM3 13.2 TH/MM3 Red Blood Count 4.66 MIL/MM3 4.45 MIL/MM3 Hemoglobin 14.3 GM/DL 13.4 GM/DL Hematocrit 43.1 % 40.9 % Mean Corpuscular Volume 92.5 FL 91.8 FL Mean Corpuscular Hemoglobin 30.7 PG 30.2 PG Mean Corpuscular Hemoglobin Concent 33.2 % 32.9 % Red Cell Distribution Width 14.1 % 14.1 % Platelet Count 199 TH/MM3 185 TH/MM3 Mean Platelet Volume 7.8 FL 8.2 FL Neutrophils (%) (Auto) 88.7 % 83.3 % Lymphocytes (%) (Auto) 3.3 % 7.6 % Monocytes (%) (Auto) 7.9 % 8.2 % Eosinophils (%) (Auto) 0.0 % 0.7 % Basophils (%) (Auto) 0.1 % 0.2 % Neutrophils # (Auto) 16.3 TH/MM3 11.0 TH/MM3 Lymphocytes # (Auto) 0.6 TH/MM3 1.0 TH/MM3 Monocytes # (Auto) 1.4 TH/MM3 1.1 TH/MM3 Eosinophils # (Auto) 0.0 TH/MM3 0.1 TH/MM3 Basophils # (Auto) 0.0 TH/MM3 0.0 TH/MM3 CBC Comment DIFF FINAL DIFF FINAL Differential Comment Urine Color YELLOW Urine Turbidity CLEAR Urine pH 6.0 Urine Specific [place] 1.016 Urine Protein NEG mg/dL Urine Glucose (UA) NEG mg/dL Urine Ketones TRACE mg/dL Urine Occult Blood NEG Urine Nitrite NEG Urine Bilirubin NEG Urine Urobilinogen 2.0 mg/dL Urine Leukocyte Esterase NEG Urine RBC 3 /hpf Urine WBC 1 /hpf Urine Bacteria RARE /hpf Urine Hyaline Casts 4 /lpf Urine Mucus FEW /lpf Microscopic Urinalysis Comment CATH-CULTURE IND Blood Urea Nitrogen 7 MG/DL 6 MG/DL Creatinine 0.80 MG/DL 0.62 MG/DL Random Glucose 98 MG/DL 100 MG/DL Total Protein 7.0 GM/DL 5.9 GM/DL Albumin 3.9 GM/DL 3.1 GM/DL Calcium Level 8.9 MG/DL 8.6 MG/DL Alkaline Phosphatase 104 U/L 115 U/L Aspartate Amino Transf (AST/SGOT) 18 U/L 22 U/L Alanine Aminotransferase (ALT/SGPT) 23 U/L 42 U/L Total Bilirubin 0.5 MG/DL 0.8 MG/DL Sodium Level 137 MEQ/L 141 MEQ/L Potassium Level 3.4 MEQ/L 3.8 MEQ/L Chloride Level 103 MEQ/L 111 MEQ/L Carbon Dioxide Level 22.6 MEQ/L 19.6 MEQ/L Anion Gap 11 MEQ/L 10 MEQ/L Estimat Glomerular Filtration Rate 116 ML/MIN 156 ML/MIN Lactic Acid Level 1.3 mmol/L Objective Remarks GENERAL: Awake alert and oriented 3 talkative and cooperative SKIN: Warm and dry. Tenderness to right hand with swelling HEAD: Atraumatic. Normocephalic. EYES: Pupils equal and round. No scleral icterus. No injection or drainage. Extraocular muscles intact ENT: No nasal bleeding or discharge. Mucous membranes pink and moist. Tongue is midline NECK: Trachea midline. No JVD. Supple CARDIOVASCULAR: Regular rate and rhythm. S1-S2 no S3 or S4 RESPIRATORY: No accessory muscle use. Clear to auscultation. Breath sounds equal bilaterally. GASTROINTESTINAL: Abdomen soft, non-tender, nondistended. Hepatic and splenic margins not palpable. MUSCULOSKELETAL: Extremities without clubbing, cyanosis, or edema. No obvious deformities. NEUROLOGICAL: Awake and alert. No obvious cranial nerve deficits. Motor grossly within normal limits. Five out of 5 muscle strength in the arms and legs. Normal speech. Right hand is quite swollen tender decreased range of motion PSYCHIATRIC: Appropriate mood and affect; insight and judgment normal. Medications and IVs Current Medications Acetaminophen (Tylenol) 650 mg ONCE ONCE PO Last administered on 04/16/18 17: 05; Start 04/16/18 at 16:30; Stop 04/16/18 at 16:31; Status DC Piperacillin Sod/ Tazobactam Sod 100 ml @ 200 mls/hr ONCE STAT IV Last administered on 04/16/18 17:04; Start 04/16/18 at 16:24; Stop 04/16/18 at 16:53 ; Status DC Vancomycin HCl 1000 mg/Sodium Chloride 250 ml @ 250 mls/hr ONCE STAT IV Last administered on 04/16/18 17:05; Start 04/16/18 at 16:24; Stop 04/16/18 at 17:23 ; Status DC Sodium Chloride 1,000 ml @ 1,000 mls/hr Q1H ONCE IV Last administered on 17:03; Start 04/16/18 at 16:24; Stop 04/16/18 at 17:23; Status DC Sodium Chloride 1,000 ml @ 1,000 mls/hr Q1H ONCE IV Last administered on at 17:06; Start 04/16/18 at 16:24; Stop 04/16/18 at 17:23; Status DC Sodium Chloride 1,000 ml @ 100 mls/hr Q10H IV Last administered on 04/17/18at 07:52; Start 04/16/18 at 18:40 Sodium Chloride (NS Flush) 2 ml UNSCH PRN IV FLUSH FLUSH AFTER USING IV ACCESS ; Start 04/16/18 at 18:45 Sodium Chloride (NS Flush) 2 ml BID IV FLUSH Last administered on 04/17/18at 07: 52; Start 04/16/18 at 21:00 Naloxone HCl (Narcan Inj) 0.4 mg UNSCH PRN IV PUSH SEE LABEL COMMENTS; Start at 18:45 Magnesium Hydroxide (Milk Of Magnesia Liq) 30 ml Q12H PRN PO Mild constipation ; Start 04/16/18 at 18:45 Sennosides (Senokot) 17.2 mg Q12H PRN PO Moderate constipation; Start 04/16/18 at 18:45 Bisacodyl (Dulcolax Supp) 10 mg DAILY PRN RECTAL SEVERE CONSITIPATION; Start at 18:45 Lactulose (Lactulose Liq) 30 ml DAILY PRN PO SEVERE CONSITIPATION; Start at 18:45 Pharmacy Profile Note 0 ml @ 0 mls/hr UNSCH OTHER ; Start 04/16/18 at 18:45 Piperacillin Sod/ Tazobactam Sod 50 ml @ 100 mls/hr Q6H IV Last administered on 04/17/18at 10:27; Start 04/16/18 at 23:00 Oxycodone/ Acetaminophen (Percocet 5-325 Mg) 1 tab Q4H PRN PO pain 6-10 Last administered on 04/17/18at 07:51; Start 04/16/18 at 20:00 Potassium Chloride (KCl) 40 meq ONCE ONCE PO Last administered on 04/16/18at 23 :20; Start 04/16/18 at 20:00; Stop 04/16/18 at 21:29; Status DC Vancomycin HCl 1000 mg/Sodium Chloride 250 ml @ 250 mls/hr ONCE ONCE IV Last administered on 04/17/18at 00:16; Start 04/17/18 at 01:00; Stop 04/17/18 at 01:59 ; Status DC Vancomycin HCl 1000 mg/Sodium Chloride 250 ml @ 250 mls/hr ONCE ONCE IV Last administered on 04/17/18at 07:51; Start 04/17/18 at 09:00; Stop 04/17/18 at 09:59 ; Status DC Miscellaneous Information ([facility] Ordered Lab Info) SPECIFIC LAB TO BE CRISTA... ONCE ONCE .XX ; Start 04/17/18 at 16:45; Stop 04/17/18 at 16:46 A/P Assessment and Plan 1. Cellulitis/lymphangitis/sepsis/burn right hand Blood cultures pending Vancomycin/Zosyn Infectious disease consulted, appreciate recommendations We will get MRI of right hand May need hand surgery in the future 2. Hypokalemia Patient with mild hypokalemia Status post p.o. supplementation Monitor BMP History of obsessive-compulsive disorder Tobacco abuse continue on NicoDerm patch FEN Regular diet Electrolytes: As above NS at 100 cc/hour Discharge Planning Pending improvement and infectious disease input may need hand surgery Salvatore Saleh DO Apr 17, 2018 12:08
[2018-04-17] MEDS ORDERED: NALOXONE HCL 0.4 MG/ML AMP IV PUSH PRN (12:15)
[2018-04-17] MEDS ORDERED: oxyCODONE/ACETAMINOPHEN 5 MG/325 MG TAB PO PRN (12:15)
[2018-04-17] MEDS ORDERED: BISACODYL 10 MG SUPP RECTAL PRN (12:15)
[2018-04-17] MEDS ORDERED: LACTULOSE SYRUP 20 GM/30 ML CUP PO PRN (12:15)
[2018-04-17] MEDS ORDERED: METOCLOPRAMIDE HCL 10 MG/2 ML VIAL IV PUSH PRN (12:15)
[2018-04-17] MEDS ORDERED: MORPHINE SULFATE 2 MG/ML SYRINGE IV PUSH PRN ×3 (12:15)
[2018-04-17] MEDS ORDERED: MAGNESIUM HYDROXIDE SUSP 30 ML CUP PO PRN (12:15)
[2018-04-17] MEDS ORDERED: ONDANSETRON ODT 4 MG TAB SL PRN (12:15)
[2018-04-17] MEDS ORDERED: SODIUM CHLORIDE 0.9% FLUSH 10 ML FLUSH IV FLUSH PRN (12:15)
[2018-04-17] MEDS ORDERED: ACETAMINOPHEN 325 MG TAB PO PRN ×2 (12:15)
[2018-04-17] MEDS ORDERED: SENNOSIDES 8.6 MG TAB PO PRN (12:15)
[2018-04-17] MEDS ORDERED: NICOTINE 14 MG/24 HR PATCH T-DERMAL ONE (12:15)
[2018-04-17 12:40] VITALS: BP 115/57; PULSE 82; RESP 20; TEMP 98.1; O2SAT 98
[2018-04-17] MEDS: oxyCODONE/ACETAMINOPHEN 10 MG/325 MG TAB PO PRN ×2 (12:46→17:32)
[2018-04-17] MEDS: ENOXAPARIN SODIUM 40 MG/0.4 ML SYRINGE SQ SCH (12:46)
--- NOTE | 2018-04-17 13:07 | PD.ID.CON ---
History of Present Illness Service ID Consult Requested By Reason for Consult Evaluation and Mment of right hand abscess and cellulitis. Primary Care Physician No Primary Care Physician Diagnoses: History of Present Illness is a 27 y/o CM with no significant PMHx presents to the emergency department for evaluation of swelling of his right hand. The patient reports that approximately 3 days ago he burned himself on the oven at work. He states that since that time his hand has become more red and swollen and now has red streaks going up his arm towards his axilla. He endorses subjective, severe fever/chills. No chest pain or shortness of breath. No cough. No abdominal pain. No nausea/vomiting/diarrhea. denies any prior endocarditis, discitis or epidural abscesses. ID consulted for evaluation and Mment of right hand abscess and cellulitis possible tendinitis. Review of Systems ROS Limitations: Poor Historian Past Family Social History Allergies: Coded Allergies: No Known Allergies (Verified Allergy, Unknown, 04/16/18) Past Medical History Cardiac ablation for unspecified tachycardia IVDA Past Surgical History none per patient. Reported Medications Reported Meds & Active Scripts Active No Active Prescriptions or Reported Medications Active Ordered Medications Current Medications Medications (Trade) Dose Ordered Sig/Mak Route Start Time Stop Time Status Last Admin Sodium Chloride 1,000 ml @ 100 mls/hr Q10H IV 04/16/18 18:40 04/17/18 12:57 (NS Flush) 2 ml UNSCH PRN IV FLUSH 04/16/18 18:45 (NS Flush) 2 ml BID IV FLUSH 04/16/18 21:00 04/17/18 07:52 (Narcan Inj) 0.4 mg UNSCH PRN IV PUSH 04/16/18 18:45 (Milk Of Magnesia Liq) 30 ml Q12H PRN PO 04/16/18 18:45 (Senokot) 17.2 mg Q12H PRN PO 04/16/18 18:45 (Dulcolax Supp) 10 mg DAILY PRN RECTAL 04/16/18 18:45 (Lactulose Liq) 30 ml DAILY PRN PO 04/16/18 18:45 Pharmacy Profile Note 0 ml @ 0 mls/hr UNSCH OTHER 04/16/18 18:45 Piperacillin Sod/ Tazobactam Sod 50 ml @ 100 mls/hr Q6H IV 04/16/18 23:00 04/17/18 10:27 ([facility] Ordered Lab Info) SPECIFIC LAB TO BE ... ONCE ONCE .XX 04/17/18 16:45 04/17/18 16:46 (Habitrol 14 Mg Patch.24 Hr) 1 patch DAILY T-DERMAL 04/18/18 09:00 (NS Flush) 2 ml UNSCH PRN IV FLUSH 04/17/18 12:15 (NS Flush) 2 ml BID IV FLUSH 04/17/18 21:00 (Tylenol) 650 mg Q4H PRN PO 04/17/18 12:15 (Zofran Odt) 4 mg Q6H PRN SL 04/17/18 12:15 (Reglan Inj) 5 mg Q6H PRN IV PUSH 04/17/18 12:15 (Lovenox Inj) 40 mg Q24H SQ 04/17/18 13:00 04/17/18 12:46 (Tylenol) 650 mg Q6H PRN PO 04/17/18 12:15 (Percocet 5-325 Mg) 1 tab Q6H PRN PO 04/17/18 12:15 (Percocet 10-325 Mg) 1 tab Q6H PRN PO 04/17/18 12:15 04/17/18 12:46 (Morphine Inj) 2 mg Q3H PRN IV PUSH 04/17/18 12:15 (Morphine Inj) 4 mg Q3H PRN IV PUSH 04/17/18 12:15 (Morphine Inj) 4 mg Q3H PRN IV PUSH 04/17/18 12:15 (Narcan Inj) 0.4 mg UNSCH PRN IV PUSH 04/17/18 12:15 (Valeri-Colace) 1 tab BID PO 04/17/18 21:00 (Milk Of Magnesia Liq) 30 ml Q12H PRN PO 04/17/18 12:15 (Senokot) 17.2 mg Q12H PRN PO 04/17/18 12:15 (Dulcolax Supp) 10 mg DAILY PRN RECTAL 04/17/18 12:15 (Lactulose Liq) 30 ml DAILY PRN PO 04/17/18 12:15 Miscellaneous Information 1 DAILY T-DERMAL 04/18/18 09:00 Family History reviewed and NC to current ID problems Social History Smokes approximately 1 pack per day. Occasional alcohol. Positive marijuana. Admits to IVDA. Works in a restaurant and also general doc. Physical Exam Vital Signs Vital Signs Date Time Temp Pulse Resp B/P (MAP) Pulse Ox O2 Delivery O2 Flow Rate FiO2 04/17/18 07:49 98.6 73 16 112/59 (76) 98 04/17/18 04:00 98.0 64 16 127/70 (89) 97 04/17/18 00:16 18 04/17/18 00:00 99.1 92 19 142/60 (87) 98 04/16/18 20:40 100.0 88 18 131/65 (87) 97 04/16/18 20:31 04/16/18 18:16 99.4 89 16 98 Room Air 04/16/18 16:45 100 Room Air 04/16/18 16:45 89 18 120/56 (77) 100 Room Air 04/16/18 16:45 89 18 120/56 (77) 100 Room Air 04/16/18 16:00 99.9 103 20 123/58 (79) 98 Physical Exam GENERAL: This is a well-nourished, well-developed patient, in no apparent distress. SKIN: No rashes, ecchymoses or lesions. Cool and dry. HEAD: Atraumatic. Normocephalic. No temporal or scalp tenderness. EYES: Pupils equal round and reactive. No scleral icterus. No injection or drainage. ENT: Nose without bleeding, purulent drainage or septal hematoma. Throat without erythema, tonsillar hypertrophy or exudate. Uvula midline. Airway patent. NECK: Trachea midline. Supple, nontender, no meningeal signs. CARDIOVASCULAR: HS audible. RESPIRATORY: Clear to auscultation. Breath sounds equal bilaterally. GASTROINTESTINAL: Abdomen soft, non-tender, nondistended. MUSCULOSKELETAL: Right hand and forearm with swelling, erythema and induration. Unable to flex his fingers completely into a fist. Scratch mtz noted. On right elbow there was some erythema noted mild tenderness but no induration. NEUROLOGICAL: Awake and alert. Non focal exam Psych cooperative IV line sites with no e.o infection Laboratory Laboratory Tests Test 04/16/18 17:00 04/17/18 07:10 White Blood Count 18.3 13.2 Red Blood Count 4.66 4.45 Hemoglobin 14.3 13.4 Hematocrit 43.1 40.9 Mean Corpuscular Volume 92.5 91.8 Mean Corpuscular Hemoglobin 30.7 30.2 Mean Corpuscular Hemoglobin Concent 33.2 32.9 Red Cell Distribution Width 14.1 14.1 Platelet Count 199 185 Mean Platelet Volume 7.8 8.2 Neutrophils (%) (Auto) 88.7 83.3 Lymphocytes (%) (Auto) 3.3 7.6 Monocytes (%) (Auto) 7.9 8.2 Eosinophils (%) (Auto) 0.0 0.7 Basophils (%) (Auto) 0.1 0.2 Neutrophils # (Auto) 16.3 11.0 Lymphocytes # (Auto) 0.6 1.0 Monocytes # (Auto) 1.4 1.1 Eosinophils # (Auto) 0.0 0.1 Basophils # (Auto) 0.0 0.0 CBC Comment DIFF FINAL DIFF FINAL Differential Comment Urine Color YELLOW Urine Turbidity CLEAR Urine pH 6.0 Urine Specific [place] 1.016 Urine Protein NEG Urine Glucose (UA) NEG Urine Ketones TRACE Urine Occult Blood NEG Urine Nitrite NEG Urine Bilirubin NEG Urine Urobilinogen 2.0 Urine Leukocyte Esterase NEG Urine RBC 3 Urine WBC 1 Urine Bacteria RARE Urine Hyaline Casts 4 Urine Mucus FEW Microscopic Urinalysis Comment CATH-CULTURE IND Blood Urea Nitrogen 7 6 Creatinine 0.80 0.62 Random Glucose 98 100 Total Protein 7.0 5.9 Albumin 3.9 3.1 Calcium Level 8.9 8.6 Alkaline Phosphatase 104 115 Aspartate Amino Transf (AST/SGOT) 18 22 Alanine Aminotransferase (ALT/SGPT) 23 42 Total Bilirubin 0.5 0.8 Sodium Level 137 141 Potassium Level 3.4 3.8 Chloride Level 103 111 Carbon Dioxide Level 22.6 19.6 Anion Gap 11 10 Estimat Glomerular Filtration Rate 116 156 Lactic Acid Level 1.3 Date/Time Source Procedure Growth Status 04/16/18 17:00 Blood Peripheral Aerobic Blood Culture - Preliminary NO GROWTH IN 1 DAY Resulted 04/16/18 17:00 Blood Peripheral Anaerobic Blood Culture - Preliminary NO GROWTH IN 1 DAY Resulted 04/16/18 17:00 Urine Catheterized Urine Urine Culture Pending Received Result Diagram: 04/17/18 0710 04/17/18 0710 Assessment and Plan Assessment and Plan Right hand cellulitis, abscess ? tendinitis. Right UE lymphangitis. Denies IVDA. Denies trauma or animal bite. Recs Continue Vanco IV Continue Continue Zosyn IV Agree with MRI hand Consult Hand surgery Follow cultures Follow clinically. dw patient Deidre Gaxiola MD Apr 17, 2018 13:07
[2018-04-17] MEDS ORDERED: GADODIAMIDE PF 287 MG/ML 5 ML VIAL (for RAD MRI) IVCONTRAST ONE (14:39)
--- NOTE | 2018-04-17 15:26 | RADRPT ---
EXAM DATE: 04/17/2018 2:46 PM EDT AGE/SEX: 27 years / Male INDICATIONS: . Cellulitis. Swollen right hand. CLINICAL DATA: This is the patient's subsequent encounter. Patient reports that signs and symptoms h ave been present for 3 days and indicates a pain score of 7/10. MEDICAL/SURGICAL HISTORY: None. Appendectomy. Cryoablation of heart. COMPARISON: No prior exams available for comparison. TECHNIQUE: Multiplanar, multisequence MRI examination was performed without contrast and after the i ntravenous administration of 12 ml Omniscan (gadodiamide) contrast as a single exam dose. FINDINGS: Marrow: There is homogeneous signal in the marrow of the visualized bones of the hand. Metacarpal-Phalangeal Joints: The MCP joints are unremarkable with no evidence of erosion, effusion, or malalignment. Interphalangeal Joints: The PIP and DIP joints are unremarkable with no evidence of erosion, effusio n or malalignment. Extensor Tendons: The visualized extensor tendons are intact. Flexor Tendons: The visualized flexor tendons are intact. Soft Tissues: There is edema and enhancement seen throughout the dorsum of the hand. This mainly inv olves the subcutaneous tissue but does extend around the extensor tendons. There is a crescentic foca l multilocular fluid collection likely related to an abscess around the dorsal aspect of the thumb be ginning at the proximal first metacarpal level and extending to the MCP joint level. This is in the d orsal superficial soft tissues superficial to the tendons. It measures approximate 2.6 cm in length, 2.4 cm in greatest transverse dimension, but only up to 3 mm in thickness. CONCLUSION: Edema and enhancement throughout the dorsal soft tissues of the hand. There is a crescentic multilocu lated fluid collection of the long the dorsal superficial soft tissues of the thumb extending along the length of the first metacarpal likely related to an abscess. Electronically signed by: Doc Wynne MD 04/17/2018 3:24 PM EDT
[2018-04-17] MEDS ORDERED: PHARMACY ORDERED LAB ONE (16:45)
[2018-04-17] MEDS: DOCUSATE SODIUM 50 MG/SENNA 8.6 MG TAB PO SCH (20:30)
[2018-04-17 21:38] VITALS: O2SAT 98
[2018-04-17 21:40] VITALS: BP 118/66; PULSE 82; RESP 16; TEMP 99.7; O2SAT 99
[2018-04-17] MEDS: VANCOMYCIN INJ 1,250 MG in SODIUM CHLOR 0.9% 250 ML INJ 250 ML IV SCH (22:00)
[2018-04-17] MEDS ORDERED: MORPHINE SULFATE 4 MG/ML INJ IV PUSH PRN ×2 (22:00)
[2018-04-17] MEDS: MORPHINE SULFATE 4 MG/ML INJ IV PUSH PRN (22:06)
[2018-04-18] MEDS: oxyCODONE/ACETAMINOPHEN 10 MG/325 MG TAB PO PRN ×3 (00:08→15:17)
[2018-04-18 00:16] VITALS: BP 123/58; PULSE 78; RESP 16; TEMP 98.4; O2SAT 98
[2018-04-18 05:05] VITALS: BP 117/57; PULSE 67; RESP 16; TEMP 98.1; O2SAT 100
[2018-04-18] MEDS: PIPERACIL-TAZO 3.375 GM PREMIX 50 ML IV SCH ×3 (06:22→17:21)
[2018-04-18] MEDS: VANCOMYCIN INJ 1,250 MG in SODIUM CHLOR 0.9% 250 ML INJ 250 ML IV SCH ×2 (06:24→14:34)
[2018-04-18 08:00] VITALS: BP 118/69; PULSE 59; RESP 20; TEMP 98.8; O2SAT 99
[2018-04-18 08:44] LABS: AUTOMATED NEUTROPHIL # 7.4 TH/MM3 (1.8-7.7); BASOPHIL % 0.2 % (0.0-2.0); EOSINOPHIL # 0.1 TH/MM3 (0-0.4); EOSINOPHIL % 1.5 % (0.0-4.0); HEMATOCRIT 37.2 % (39.0-51.0); HEMOGLOBIN 12.5 GM/DL (13.0-17.0); LYMPH % 13.6 % (9.0-44.0); LYMPHOCYTE # 1.3 TH/MM3 (1.0-4.8); MEAN CELL VOLUME 92.3 FL (80.0-100.0); MEAN CORPUSCULAR HEMOGLOBIN 31.1 PG (27.0-34.0); MEAN CORPUSCULAR HGB CONC 33.7 % (32.0-36.0); MEAN PLATELET VOLUME 8.1 FL (7.0-11.0); MONO % 8.8 % (0.0-8.0); MONOCYTE # 0.8 TH/MM3 (0-0.9); NEUT % 75.9 % (16.0-70.0); PLATELET COUNT 175 TH/MM3 (150-450); RED BLOOD COUNT 4.02 MIL/MM3 (4.50-5.90); RED CELL DISTRIBUTION WIDTH 13.8 % (11.6-17.2); WHITE BLOOD COUNT 9.7 TH/MM3 (4.0-11.0)
[2018-04-18] MEDS ORDERED: REMOVE OLD PATCH T-DERMAL SCH (09:00)
[2018-04-18] MEDS: SODIUM CHLORIDE 0.9% FLUSH 10 ML FLUSH IV FLUSH SCH ×2 (09:00)
[2018-04-18] MEDS: DOCUSATE SODIUM 50 MG/SENNA 8.6 MG TAB PO SCH (09:00)
[2018-04-18] MEDS ORDERED: REMOVE OLD NICOTINE PATCH T-DERMAL SCH (09:00)
[2018-04-18] MEDS ORDERED: NICOTINE 14 MG/24 HR PATCH T-DERMAL SCH (09:00)
[2018-04-18 09:15] LABS: ALBUMIN 2.8 GM/DL (3.4-5.0); ALT (GPT) 30 U/L (12-78); AST (GOT) 11 U/L (15-37); BICARBONATE 21.7 MEQ/L (21.0-32.0); BLOOD UREA NITROGEN 4 MG/DL (7-18); CALCIUM 8.4 MG/DL (8.5-10.1); CHLORIDE 110 MEQ/L (98-107); CREATININE 0.57 MG/DL (0.60-1.30); GLOMERULAR FILTRATION RATE 171 ML/MIN (>89); GLUCOSE,RANDOM 93 MG/DL (74-106); SODIUM (NA) 141 MEQ/L (136-145)
[2018-04-18 09:24] LABS: ALKALINE PHOSPHATASE 98 U/L (45-117); FREE T4 1.03 NG/DL (0.76-1.46); PHOSPHORUS 2.3 MG/DL (2.5-4.9); TOTAL BILIRUBIN ADULT 0.5 MG/DL (0.2-1.0); TOTAL PROTEIN 5.9 GM/DL (6.4-8.2)
[2018-04-18] MEDS: MORPHINE SULFATE 4 MG/ML INJ IV PUSH PRN (09:26)
[2018-04-18] MEDS: SODIUM CHLOR 0.9% 1000 ML INJ 1,000 ML IV SCH (10:40)
[2018-04-18 10:46] VITALS: O2SAT 99
[2018-04-18 12:00] VITALS: BP 115/60; PULSE 78; RESP 20; TEMP 98.1; O2SAT 98
--- NOTE | 2018-04-18 12:47 | HHI.PR ---
Subjective Remarks 27-year-old male with no significant past medical history presents the emergency department for evaluation of swelling of his right hand. The patient reports that approximately 3 days ago he burned himself on the oven at work. He states that since that time his hand has become more red and swollen and now has red streaks going up his arm towards his axilla. He endorses subjective, severe fever/chills. No chest pain or shortness of breath. No cough. No abdominal pain. No nausea/vomiting/diarrhea. 6-20 COMPLAINS OF PAIN AND SWELLING IN RIGHT HAND DW RN AND PT ID CONSULT MAY NEED HAND SURGERY CONSULT PAIN CONTROL 04-18 SLOW IMPROVEMENT USING KRATOM AT HOME RIGHT HAND IS IMPROVING DW RN AND PT DW DR MALCOLM Objective Vitals Vital Signs Date Time Temp Pulse Resp B/P (MAP) Pulse Ox O2 Delivery O2 Flow Rate FiO2 04/18/18 10:54 04/18/18 10:46 99 21 04/18/18 08:00 98.8 59 20 118/69 (85) 99 04/18/18 05:05 98.1 67 16 117/57 (77) 100 04/18/18 00:16 98.4 78 16 123/58 (79) 98 04/17/18 21:40 99.7 82 16 118/66 (83) 99 04/17/18 21:38 98 04/17/18 12:40 98.1 82 20 115/57 (76) 98 I/O 04/17/18 04/17/18 04/17/18 04/18/18 04/18/18 04/18/18 07:00 15:00 23:00 07:00 15:00 23:00 Intake Total 420 ml 960 ml 1080 ml Output Total 300 ml 1600 ml 1850 ml Balance 120 ml -640 ml -770 ml Intake Oral 420 ml 960 ml 1080 ml Output Urine Total 300 ml 1600 ml 1850 ml # Bowel Movements 1 0 Result Diagram: 04/18/18 0804 04/18/18 0804 Other Results Laboratory Tests Test 04/16/18 17:00 04/17/18 07:10 04/17/18 14:54 04/17/18 16:45 White Blood Count 18.3 TH/MM3 13.2 TH/MM3 Red Blood Count 4.66 MIL/MM3 4.45 MIL/MM3 Hemoglobin 14.3 GM/DL 13.4 GM/DL Hematocrit 43.1 % 40.9 % Mean Corpuscular Volume 92.5 FL 91.8 FL Mean Corpuscular Hemoglobin 30.7 PG 30.2 PG Mean Corpuscular Hemoglobin Concent 33.2 % 32.9 % Red Cell Distribution Width 14.1 % 14.1 % Platelet Count 199 TH/MM3 185 TH/MM3 Mean Platelet Volume 7.8 FL 8.2 FL Neutrophils (%) (Auto) 88.7 % 83.3 % Lymphocytes (%) (Auto) 3.3 % 7.6 % Monocytes (%) (Auto) 7.9 % 8.2 % Eosinophils (%) (Auto) 0.0 % 0.7 % Basophils (%) (Auto) 0.1 % 0.2 % Neutrophils # (Auto) 16.3 TH/MM3 11.0 TH/MM3 Lymphocytes # (Auto) 0.6 TH/MM3 1.0 TH/MM3 Monocytes # (Auto) 1.4 TH/MM3 1.1 TH/MM3 Eosinophils # (Auto) 0.0 TH/MM3 0.1 TH/MM3 Basophils # (Auto) 0.0 TH/MM3 0.0 TH/MM3 CBC Comment DIFF FINAL DIFF FINAL Differential Comment Urine Color YELLOW Urine Turbidity CLEAR Urine pH 6.0 Urine Specific [place] 1.016 Urine Protein NEG mg/dL Urine Glucose (UA) NEG mg/dL Urine Ketones TRACE mg/dL Urine Occult Blood NEG Urine Nitrite NEG Urine Bilirubin NEG Urine Urobilinogen 2.0 mg/dL Urine Leukocyte Esterase NEG Urine RBC 3 /hpf Urine WBC 1 /hpf Urine Bacteria RARE /hpf Urine Hyaline Casts 4 /lpf Urine Mucus FEW /lpf Microscopic Urinalysis Comment CATH-CULTURE IND Blood Urea Nitrogen 7 MG/DL 6 MG/DL Creatinine 0.80 MG/DL 0.62 MG/DL Random Glucose 98 MG/DL 100 MG/DL Total Protein 7.0 GM/DL 5.9 GM/DL Albumin 3.9 GM/DL 3.1 GM/DL Calcium Level 8.9 MG/DL 8.6 MG/DL Alkaline Phosphatase 104 U/L 115 U/L Aspartate Amino Transf (AST/SGOT) 18 U/L 22 U/L Alanine Aminotransferase (ALT/SGPT) 23 U/L 42 U/L Total Bilirubin 0.5 MG/DL 0.8 MG/DL Sodium Level 137 MEQ/L 141 MEQ/L Potassium Level 3.4 MEQ/L 3.8 MEQ/L Chloride Level 103 MEQ/L 111 MEQ/L Carbon Dioxide Level 22.6 MEQ/L 19.6 MEQ/L Anion Gap 11 MEQ/L 10 MEQ/L Estimat Glomerular Filtration Rate 116 ML/MIN 156 ML/MIN Lactic Acid Level 1.3 mmol/L Urine Opiates Screen NEG Urine Barbiturates Screen NEG Urine Amphetamines Screen NEG Urine Benzodiazepines Screen NEG Urine Cocaine Screen NEG Urine Cannabinoids Screen POS Vancomycin Level Trough 4.9 MCG/ML Test 04/18/18 08:04 White Blood Count 9.7 TH/MM3 Red Blood Count 4.02 MIL/MM3 Hemoglobin 12.5 GM/DL Hematocrit 37.2 % Mean Corpuscular Volume 92.3 FL Mean Corpuscular Hemoglobin 31.1 PG Mean Corpuscular Hemoglobin Concent 33.7 % Red Cell Distribution Width 13.8 % Platelet Count 175 TH/MM3 Mean Platelet Volume 8.1 FL Neutrophils (%) (Auto) 75.9 % Lymphocytes (%) (Auto) 13.6 % Monocytes (%) (Auto) 8.8 % Eosinophils (%) (Auto) 1.5 % Basophils (%) (Auto) 0.2 % Neutrophils # (Auto) 7.4 TH/MM3 Lymphocytes # (Auto) 1.3 TH/MM3 Monocytes # (Auto) 0.8 TH/MM3 Eosinophils # (Auto) 0.1 TH/MM3 Basophils # (Auto) 0.0 TH/MM3 CBC Comment DIFF FINAL Differential Comment Blood Urea Nitrogen 4 MG/DL Creatinine 0.57 MG/DL Random Glucose 93 MG/DL Total Protein 5.9 GM/DL Albumin 2.8 GM/DL Calcium Level 8.4 MG/DL Phosphorus Level 2.3 MG/DL Magnesium Level 2.0 MG/DL Alkaline Phosphatase 98 U/L Aspartate Amino Transf (AST/SGOT) 11 U/L Alanine Aminotransferase (ALT/SGPT) 30 U/L Total Bilirubin 0.5 MG/DL Sodium Level 141 MEQ/L Potassium Level 3.5 MEQ/L Chloride Level 110 MEQ/L Carbon Dioxide Level 21.7 MEQ/L Anion Gap 9 MEQ/L Estimat Glomerular Filtration Rate 171 ML/MIN Free Thyroxine 1.03 NG/DL Thyroid Stimulating Hormone 3rd Gen 0.991 uIU/ML Imaging Last Impressions Hand MRI 04/17/18 0000 Signed Impressions: CONCLUSION: Edema and enhancement throughout the dorsal soft tissues of the hand. There is a crescentic multiloculated fluid collection of the long the dorsal superficia l soft tissues of the thumb extending along the length of the first metacarpal likely related to an abscess. Objective Remarks GENERAL: Awake alert and oriented 3 talkative and cooperative SKIN: Warm and dry. Tenderness to right hand with swelling RIGHT HAND LESS SWELLING- MOVING BETTER HEAD: Atraumatic. Normocephalic. EYES: Pupils equal and round. No scleral icterus. No injection or drainage. Extraocular muscles intact ENT: No nasal bleeding or discharge. Mucous membranes pink and moist. Tongue is midline NECK: Trachea midline. No JVD. Supple CARDIOVASCULAR: Regular rate and rhythm. S1-S2 no S3 or S4 RESPIRATORY: No accessory muscle use. Clear to auscultation. Breath sounds equal bilaterally. GASTROINTESTINAL: Abdomen soft, non-tender, nondistended. Hepatic and splenic margins not palpable. MUSCULOSKELETAL: Extremities without clubbing, cyanosis, or edema. No obvious deformities. NEUROLOGICAL: Awake and alert. No obvious cranial nerve deficits. Motor grossly within normal limits. Five out of 5 muscle strength in the arms and legs. Normal speech. Right hand is LESS swollen, LESS tender, decreased range of motion HAS IMPROVED- CAN ALMOST CLOSE HAND NOW PSYCHIATRIC: Appropriate mood and affect; insight and judgment normal. Medications and IVs Current Medications Acetaminophen (Tylenol) 650 mg ONCE ONCE PO Last administered on 04/16/18at 17: 05; Start 04/16/18 at 16:30; Stop 04/16/18 at 16:31; Status DC Piperacillin Sod/ Tazobactam Sod 100 ml @ 200 mls/hr ONCE STAT IV Last administered on 04/16/18at 17:04; Start 04/16/18 at 16:24; Stop 04/16/18 at 16:53 ; Status DC Vancomycin HCl 1000 mg/Sodium Chloride 250 ml @ 250 mls/hr ONCE STAT IV Last administered on 04/16/18 17:05; Start 04/16/18 at 16:24; Stop 04/16/18 at 17:23 ; Status DC Sodium Chloride 1,000 ml @ 1,000 mls/hr Q1H ONCE IV Last administered on at 17:03; Start 04/16/18 at 16:24; Stop 04/16/18 at 17:23; Status DC Sodium Chloride 1,000 ml @ 1,000 mls/hr Q1H ONCE IV Last administered on at 17:06; Start 04/16/18 at 16:24; Stop 04/16/18 at 17:23; Status DC Sodium Chloride 1,000 ml @ 100 mls/hr Q10H IV Last administered on 04/17/18at 12:57; Start 04/16/18 at 18:40 Sodium Chloride (NS Flush) 2 ml UNSCH PRN IV FLUSH FLUSH AFTER USING IV ACCESS Last administered on 04/17/18at 22:07; Start 04/16/18 at 18:45 Sodium Chloride (NS Flush) 2 ml BID IV FLUSH Last administered on 04/17/18at 07: 52; Start 04/16/18 at 21:00 Naloxone HCl (Narcan Inj) 0.4 mg UNSCH PRN IV PUSH SEE LABEL COMMENTS; Start at 18:45 Magnesium Hydroxide (Milk Of Magnesia Liq) 30 ml Q12H PRN PO Mild constipation ; Start 04/16/18 at 18:45 Sennosides (Senokot) 17.2 mg Q12H PRN PO Moderate constipation; Start 04/16/18 at 18:45 Bisacodyl (Dulcolax Supp) 10 mg DAILY PRN RECTAL SEVERE CONSITIPATION; Start at 18:45 Lactulose (Lactulose Liq) 30 ml DAILY PRN PO SEVERE CONSITIPATION; Start at 18:45 Pharmacy Profile Note 0 ml @ 0 mls/hr UNSCH OTHER ; Start 04/16/18 at 18:45 Piperacillin Sod/ Tazobactam Sod 50 ml @ 100 mls/hr Q6H IV Last administered on 04/18/18at 11:21; Start 04/16/18 at 23:00 Oxycodone/ Acetaminophen (Percocet 5-325 Mg) 1 tab Q4H PRN PO pain 6-10 Last administered on 04/17/18at 07:51; Start 04/16/18 at 20:00; Stop 04/17/18 at 12:12 ; Status DC Potassium Chloride (KCl) 40 meq ONCE ONCE PO Last administered on 04/16/18at 23 :20; Start 04/16/18 at 20:00; Stop 04/16/18 at 21:29; Status DC Vancomycin HCl 1000 mg/Sodium Chloride 250 ml @ 250 mls/hr ONCE ONCE IV Last administered on 04/17/18at 00:16; Start 04/17/18 at 01:00; Stop 04/17/18 at 01:59 ; Status DC Vancomycin HCl 1000 mg/Sodium Chloride 250 ml @ 250 mls/hr ONCE ONCE IV Last administered on 04/17/18at 07:51; Start 04/17/18 at 09:00; Stop 04/17/18 at 09:59 ; Status DC Miscellaneous Information ([facility] Ordered Lab Info) SPECIFIC LAB TO BE CRISTA... ONCE ONCE .XX Last administered on 04/17/18at 16:45; Start 04/17/18 at 16:45; Stop 04/17/18 at 16:46; Status DC Nicotine (Habitrol 14 Mg Patch.24 Hr) 1 patch ONCE ONCE T-DERMAL Last administered on 04/17/18at 12:51; Start 04/17/18 at 12:15; Stop 04/17/18 at 12:41 ; Status DC Nicotine (Habitrol 14 Mg Patch.24 Hr) 1 patch DAILY T-DERMAL Last administered on 04/18/18at 09:25; Start 04/18/18 at 09:00 Miscellaneous Information 1 DAILY T-DERMAL ; Start 04/18/18 at 09:00; Stop 04/18 at 09:00; Status DC Sodium Chloride (NS Flush) 2 ml UNSCH PRN IV FLUSH FLUSH AFTER USING IV ACCESS ; Start 04/17/18 at 12:15 Sodium Chloride (NS Flush) 2 ml BID IV FLUSH ; Start 04/17/18 at 21:00 Acetaminophen (Tylenol) 650 mg Q4H PRN PO TEMP > 100.4; Start 04/17/18 at 12:15 Ondansetron HCl (Zofran Odt) 4 mg Q6H PRN SL NAUSEA OR VOMITING; Start at 12:15 Metoclopramide HCl (Reglan Inj) 5 mg Q6H PRN IV PUSH NAUSEA OR VOMITING; Start 04/17/18 at 12:15 Enoxaparin Sodium (Lovenox Inj) 40 mg Q24H SQ Last administered on 04/17/18at 12 :46; Start 04/17/18 at 13:00 Acetaminophen (Tylenol) 650 mg Q6H PRN PO PAIN SCALE 1 TO 2; Start 04/17/18 at 12:15 Oxycodone/ Acetaminophen (Percocet 5-325 Mg) 1 tab Q6H PRN PO PAIN SCALE 3 TO 5; Start 04/17/18 at 12:15 Oxycodone/ Acetaminophen (Percocet 10-325 Mg) 1 tab Q6H PRN PO PAIN SCALE 6 TO 10 Last administered on 04/18/18at 06:57; Start 04/17/18 at 12:15 Morphine Sulfate (Morphine Inj) 2 mg Q3H PRN IV PUSH Pain 3-5; if unable to take PO; Start 04/17/18 at 12:15; Stop 04/17/18 at 21:57; Status DC Morphine Sulfate (Morphine Inj) 4 mg Q3H PRN IV PUSH Pain 6-10;if unable to take PO; Start 04/17/18 at 12:15; Stop 04/17/18 at 21:58; Status DC Morphine Sulfate (Morphine Inj) 4 mg Q3H PRN IV PUSH BREAKTHROUGH PAIN; Start 04/17/18 at 12:15; Stop 04/17/18 at 21:59; Status DC Naloxone HCl (Narcan Inj) 0.4 mg UNSCH PRN IV PUSH SEE LABEL COMMENTS; Start at 12:15 Senna/Docusate Sodium (Valeri-Colace) 1 tab BID PO ; Start 04/17/18 at 21:00 Magnesium Hydroxide (Milk Of Magnesia Liq) 30 ml Q12H PRN PO Mild constipation ; Start 04/17/18 at 12:15 Sennosides (Senokot) 17.2 mg Q12H PRN PO Moderate constipation; Start 04/17/18 at 12:15 Bisacodyl (Dulcolax Supp) 10 mg DAILY PRN RECTAL SEVERE CONSITIPATION; Start at 12:15 Lactulose (Lactulose Liq) 30 ml DAILY PRN PO SEVERE CONSITIPATION; Start at 12:15 Miscellaneous Information 1 DAILY T-DERMAL Last administered on 04/18/18at 09:00 ; Start 04/18/18 at 09:00 Gadodiamide (Omniscan Pf Inj) 12 ml STK-MED ONCE IVCONTRAST Last administered on 04/17/18at 14:39; Start 04/17/18 at 14:39; Stop 04/17/18 at 14:40; Status DC Vancomycin HCl 1250 mg/Sodium Chloride 262.5 ml @ 262.5 mls/ hr Q8H IV Last administered on 04/18/18at 06:24; Start 04/17/18 at 22:00 Miscellaneous Information ([facility] Ordered Lab Info) SPECIFIC LAB TO BE ... ONCE ONCE .XX ; Start 04/18/18 at 21:45; Stop 04/18/18 at 21:46 Morphine Sulfate (Morphine Inj) 2 mg Q3H PRN IV PUSH Pain 3-5; if unable to take PO; Start 04/17/18 at 22:00 Morphine Sulfate (Morphine Inj) 4 mg Q3H PRN IV PUSH Pain 6-10;if unable to take PO; Start 04/17/18 at 22:00 Morphine Sulfate (Morphine Inj) 4 mg Q3H PRN IV PUSH BREAKTHROUGH PAIN Last administered on 04/18/18at 09:26; Start 04/17/18 at 22:00 A/P Assessment and Plan 1. Cellulitis/lymphangitis/sepsis/burn right hand Blood cultures pending Vancomycin/Zosyn Infectious disease consulted, appreciate recommendations We will get MRI of right hand WILL need hand surgery in the future RIGHT HAND ABSCESS MAY NEED SURGICAL EVALUATION- ON ANTIBIOTICS 2. Hypokalemia Patient with mild hypokalemia Status post p.o. supplementation Monitor BMP History of obsessive-compulsive disorder Tobacco abuse continue on NicoDerm patch HX OF KRATOM USE FEN Regular diet Electrolytes: As above NS at 100 cc/hour Discharge Planning Pending improvement and infectious disease input CONSULT HAND SURGERY Salvatore Saleh DO Apr 18, 2018 12:47
[2018-04-18] MEDS: ENOXAPARIN SODIUM 40 MG/0.4 ML SYRINGE SQ SCH ×2 (13:00→14:34)
[2018-04-18 16:00] VITALS: BP 122/68; PULSE 66; RESP 20; TEMP 98.3; O2SAT 98
--- NOTE | 2018-04-18 16:12 | MB ---
cc: Julita Shrestha MD DATE: 04/18/2018 DATE OF CONSULTATION: 04/18/2018. REQUESTING PROVIDER: The patient is being seen at the request of Dr. Adan Mcfadden. REASON FOR CONSULTATION: Cellulitis and possible abscess of the right hand. HISTORY OF PRESENT ILLNESS: The patient is a 27-year-old male with no significant past medical history who presented to the emergency room on 04/16/2018. The patient noted he had 3 days of swelling of his hand after he burned the dorsum of his hand at work. The patient indicates that it had gotten red and swollen. He did indicate that he was somehow was taking antibiotics, which did not appear to help. On admission, his white count was 18.3 with a positive shift. The patient has been on intravenous antibiotics and over the last 48 hours, his white count has normalized to 9.7. Although he still has a shift, his absolute number of white cells went from 16.3 thousand down to 7.4 thousand today, which is in the normal range. An MRI performed on 04/17/2018 at 3:00 in the afternoon does indicate the presence of an abscess. Consultation is requested regarding evaluation and treatment of this patient. The patient does note that the hand has significantly improved, as has his range of motion. PAST MEDICAL HISTORY: Negative for high blood pressure, diabetes, heart disease, kidney disease, liver degenerative, other disease of infectious etiology. PAST SURGICAL HISTORY: The patient indicates is significant for cardiac ablation for unspecified tachycardia. MEDICATIONS: He has no known active medications. ALLERGIES: NO KNOWN FOOD OR DRUG ALLERGIES. FAMILY HISTORY: Noncontributory. SOCIAL HISTORY: Smokes a pack of cigarettes per day. PHYSICAL EXAMINATION: GENERAL: The patient is sitting comfortably in bed. VITAL SIGNS: Temperature is 98.8, pulse of 59, respirations 20, blood pressure is 118/69, pulse oximetry is 99% on room air. HEENT: His extraocular muscles are intact. His pupils are equal, round and reactive to light. His mouth is clear. NECK: Supple without masses. LUNGS: Clear. HEART: Regular rate and rhythm. EXTREMITIES: Examination of the upper extremities reveals multiple superficial ring on the dorsal aspect of his right hand. This is mostly over the prominences of the index, middle, and ring MP joints. These were all dorsal. In addition, there was healing ring along the dorsal aspect of his thumb. In the area of the distal proximal phalanx and the joint, there does appear to be some swelling, although there is no fluctuance, no tenderness. The patient has excellent range of motion. There is no pain in the joint with compression. There are no entrance wounds. There is no drainage. IMPRESSION: The patient appears to have cellulitis. I doubt that there is an abscess present. PLAN: The patient will be cleared by hand surgery for discharge on oral antibiotics. If the patient does have a relapse, he can certainly return to the emergency room or call my office for followup. MD JESUSITA Metz/REGINALD , 03:26 PM , 04:10 PM
[2018-04-18 16:48] LABS: HEMOGLOBIN A1C 5.2 % (4.3-6.0)
--- NOTE | 2018-04-18 17:55 | HHI.IDPN ---
Subjective Subjective Allergies: Coded Allergies: No Known Allergies (Verified Allergy, Unknown, 04/16/18) Objective . Vital Signs Date Time Temp Pulse Resp B/P (MAP) Pulse Ox O2 Delivery O2 Flow Rate FiO2 04/18/18 14:52 04/18/18 12:00 98.1 78 20 115/60 (78) 98 04/18/18 10:54 04/18/18 10:46 99 21 04/18/18 08:00 98.8 59 20 118/69 (85) 99 04/18/18 05:05 98.1 67 16 117/57 (77) 100 04/18/18 00:16 98.4 78 16 123/58 (79) 98 04/17/18 21:40 99.7 82 16 118/66 (83) 99 04/17/18 21:38 98 . Laboratory Tests Test 04/17/18 07:10 04/18/18 08:04 White Blood Count 13.2 TH/MM3 9.7 TH/MM3 Red Blood Count 4.45 MIL/MM3 4.02 MIL/MM3 Hemoglobin 13.4 GM/DL 12.5 GM/DL Hematocrit 40.9 % 37.2 % Mean Corpuscular Volume 91.8 FL 92.3 FL Mean Corpuscular Hemoglobin 30.2 PG 31.1 PG Mean Corpuscular Hemoglobin Concent 32.9 % 33.7 % Red Cell Distribution Width 14.1 % 13.8 % Platelet Count 185 TH/MM3 175 TH/MM3 Mean Platelet Volume 8.2 FL 8.1 FL Neutrophils (%) (Auto) 83.3 % 75.9 % Lymphocytes (%) (Auto) 7.6 % 13.6 % Monocytes (%) (Auto) 8.2 % 8.8 % Eosinophils (%) (Auto) 0.7 % 1.5 % Basophils (%) (Auto) 0.2 % 0.2 % Neutrophils # (Auto) 11.0 TH/MM3 7.4 TH/MM3 Lymphocytes # (Auto) 1.0 TH/MM3 1.3 TH/MM3 Monocytes # (Auto) 1.1 TH/MM3 0.8 TH/MM3 Eosinophils # (Auto) 0.1 TH/MM3 0.1 TH/MM3 Basophils # (Auto) 0.0 TH/MM3 0.0 TH/MM3 CBC Comment DIFF FINAL DIFF FINAL Differential Comment Laboratory Tests Test 04/17/18 07:10 6/21/18 08:04 Blood Urea Nitrogen 6 MG/DL 4 MG/DL Creatinine 0.62 MG/DL 0.57 MG/DL Random Glucose 100 MG/DL 93 MG/DL Total Protein 5.9 GM/DL 5.9 GM/DL Albumin 3.1 GM/DL 2.8 GM/DL Calcium Level 8.6 MG/DL 8.4 MG/DL Alkaline Phosphatase 115 U/L 98 U/L Aspartate Amino Transf (AST/SGOT) 22 U/L 11 U/L Alanine Aminotransferase (ALT/SGPT) 42 U/L 30 U/L Total Bilirubin 0.8 MG/DL 0.5 MG/DL Sodium Level 141 MEQ/L 141 MEQ/L Potassium Level 3.8 MEQ/L 3.5 MEQ/L Chloride Level 111 MEQ/L 110 MEQ/L Carbon Dioxide Level 19.6 MEQ/L 21.7 MEQ/L Anion Gap 10 MEQ/L 9 MEQ/L Estimat Glomerular Filtration Rate 156 ML/MIN 171 ML/MIN Phosphorus Level 2.3 MG/DL Magnesium Level 2.0 MG/DL Hemoglobin A1c 5.2 % Free Thyroxine 1.03 NG/DL Thyroid Stimulating Hormone 3rd Gen 0.991 uIU/ML Microbiology Date/Time Source Procedure Growth Status 04/16/18 17:00 Blood Peripheral Aerobic Blood Culture - Preliminary NO GROWTH IN 2 DAYS Resulted 04/16/18 17:00 Blood Peripheral Anaerobic Blood Culture - Preliminary NO GROWTH IN 2 DAYS Resulted 04/16/18 17:00 Blood Peripheral Aerobic Blood Culture - Preliminary NO GROWTH IN 2 DAYS Resulted 04/16/18 17:00 Blood Peripheral Anaerobic Blood Culture - Preliminary NO GROWTH IN 2 DAYS Resulted 04/16/18 17:00 Urine Catheterized Urine Urine Culture - Final <10,000 CFU/ML MIXED GRAM POSITIVE FL... Complete Deidre Gaxiola MD Apr 18, 2018 17:55
--- NOTE | 2018-04-18 20:30 | PD.AMA ---
Against Medical Advice Note Discharge Disposition: Against Medical Advice Pt Condition on Discharge: Guarded AMA Statement Patient Ti Rodgers has decided to leave the hospital against medical advice. This patient has the capacity to refuse care and understands the risks of leaving, including permanent disability and/or , and has had an opportunity to ask questions about his condition. The patient has been informed that he may return for care at any time, and follow up has been arranged/ advised. Nikki Culver Apr 18, 2018 20:30
[2018-04-18] MEDS ORDERED: PHARMACY ORDERED LAB ONE (21:45)
--- NOTE | 2018-04-19 12:11 | HHI.DS ---
Discharge Summary Admission Date Apr 16, 2018 at 18:45 Discharge Date: Apr 18, 2018 Admitting Diagnosis sepsis, cellulitis (1) IVDU (intravenous drug user) ICD Code: F19.90 - Other psychoactive substance use, unspecified, uncomplicated Diagnosis: Principal (2) Cellulitis of right hand ICD Code: L03.113 - Cellulitis of right upper limb Diagnosis: Principal Procedures NONE Brief History - From Admission 27-year-old male with no significant past medical history presents the emergency department for evaluation of swelling of his right hand. The patient reports that approximately 3 days ago he burned himself on the oven at work. He states that since that time his hand has become more red and swollen and now has red streaks going up his arm towards his axilla. He endorses subjective, severe fever/chills. No chest pain or shortness of breath. No cough. No abdominal pain. No nausea/vomiting/diarrhea. CBC/BMP: 04/18/18 0804 04/18/18 0804 Significant Findings Laboratory Tests Test 04/16/18 17:00 04/17/18 07:10 04/17/18 14:54 04/17/18 16:45 White Blood Count 18.3 TH/MM3 (4.0-11.0) 13.2 TH/MM3 (4.0-11.0) Neutrophils (%) (Auto) 88.7 % (16.0-70.0) 83.3 % (16.0-70.0) Lymphocytes (%) (Auto) 3.3 % (9.0-44.0) 7.6 % (9.0-44.0) Neutrophils # (Auto) 16.3 TH/MM3 (1.8-7.7) 11.0 TH/MM3 (1.8-7.7) Lymphocytes # (Auto) 0.6 TH/MM3 (1.0-4.8) Monocytes # (Auto) 1.4 TH/MM3 (0-0.9) 1.1 TH/MM3 (0-0.9) Urine Ketones TRACE mg/dL (NEG) Urine Urobilinogen 2.0 mg/dL (LESS THAN 2) Urine Bacteria RARE /hpf (NONE) Urine Mucus FEW /lpf (OCC) Potassium Level 3.4 MEQ/L (3.5-5.1) Red Blood Count 4.45 MIL/MM3 (4.50-5.90) Monocytes (%) (Auto) 8.2 % (0.0-8.0) Blood Urea Nitrogen 6 MG/DL (7-18) Total Protein 5.9 GM/DL (6.4-8.2) Albumin 3.1 GM/DL (3.4-5.0) Chloride Level 111 MEQ/L (98-107) Carbon Dioxide Level 19.6 MEQ/L (21.0-32.0) Urine Cannabinoids Screen POS (NEG) Vancomycin Level Trough 4.9 MCG/ML (5.0-10.0) Test 04/18/18 08:04 Red Blood Count 4.02 MIL/MM3 (4.50-5.90) Hemoglobin 12.5 GM/DL (13.0-17.0) Hematocrit 37.2 % (39.0-51.0) Neutrophils (%) (Auto) 75.9 % (16.0-70.0) Monocytes (%) (Auto) 8.8 % (0.0-8.0) Blood Urea Nitrogen 4 MG/DL (7-18) Creatinine 0.57 MG/DL (0.60-1.30) Total Protein 5.9 GM/DL (6.4-8.2) Albumin 2.8 GM/DL (3.4-5.0) Calcium Level 8.4 MG/DL (8.5-10.1) Phosphorus Level 2.3 MG/DL (2.5-4.9) Aspartate Amino Transf (AST/SGOT) 11 U/L (15-37) Chloride Level 110 MEQ/L (98-107) Imaging Last Impressions Hand MRI 04/17/18 0000 Signed Impressions: CONCLUSION: Edema and enhancement throughout the dorsal soft tissues of the hand. There is a crescentic multiloculated fluid collection of the long the dorsal superficia l soft tissues of the thumb extending along the length of the first metacarpal likely related to an abscess. PE at Discharge GENERAL: Awake alert and oriented 3 talkative and cooperative SKIN: Warm and dry. Tenderness to right hand with swelling RIGHT HAND LESS SWELLING- MOVING BETTER HEAD: Atraumatic. Normocephalic. EYES: Pupils equal and round. No scleral icterus. No injection or drainage. Extraocular muscles intact ENT: No nasal bleeding or discharge. Mucous membranes pink and moist. Tongue is midline NECK: Trachea midline. No JVD. Supple CARDIOVASCULAR: Regular rate and rhythm. S1-S2 no S3 or S4 RESPIRATORY: No accessory muscle use. Clear to auscultation. Breath sounds equal bilaterally. GASTROINTESTINAL: Abdomen soft, non-tender, nondistended. Hepatic and splenic margins not palpable. MUSCULOSKELETAL: Extremities without clubbing, cyanosis, or edema. No obvious deformities. NEUROLOGICAL: Awake and alert. No obvious cranial nerve deficits. Motor grossly within normal limits. Five out of 5 muscle strength in the arms and legs. Normal speech. Right hand is LESS swollen, LESS tender, decreased range of motion HAS IMPROVED- CAN ALMOST CLOSE HAND NOW PSYCHIATRIC: Appropriate mood and affect; insight and judgment normal. Hospital Course 27-year-old male with no significant past medical history presents the emergency department for evaluation of swelling of his right hand. The patient reports that approximately 3 days ago he burned himself on the oven at work. He states that since that time his hand has become more red and swollen and now has red streaks going up his arm towards his axilla. He endorses subjective, severe fever/chills. No chest pain or shortness of breath. No cough. No abdominal pain. No nausea/vomiting/diarrhea. 6-20 COMPLAINS OF PAIN AND SWELLING IN RIGHT HAND DW RN AND PT ID CONSULT MAY NEED HAND SURGERY CONSULT PAIN CONTROL 6-21 SLOW IMPROVEMENT USING KRATOM AT HOME RIGHT HAND IS IMPROVING DW RN AND PT DW DR MALCOLM DECIDED TO GO AMA LEFT ON NO MEDICATIONS OR ANTIBIOTICS Pt Condition on Discharge: Guarded Discharge Disposition: Discharge Home (LEFT AMA) Discharge Time: <= 30 minutes Discharge Instructions DIET: Follow Instructions for: As Tolerated, No Restrictions Speech Therapy-Diet Recommends: Regular Medication Profile: No Active Prescriptions or Reported Meds Additional Information PT LEFT Salvatore Delcid DO Apr 19, 2018 12:11
== END 2018-04-18 20:42 | disposition left against medical advice (07) | DRG 603 ==
LOC: NEPD 15:51 → NEDA 18:45 → N04A 20:25
PROVIDERS: ADMIT Hospitalist; ATTEND Hospitalist
DX: L03.113 Cellulitis of right upper limb (principal); E87.6 Hypokalemia; F17.210 Nicotine dependence, cigarettes, uncomplicated; I89.1 Lymphangitis; T23.101A Burn of first degree of right hand, unspecified site, initial encounter; F19.90 Other psychoactive substance use, unspecified, uncomplicated; F12.90 Cannabis use, unspecified, uncomplicated; X19.XXXA Contact with other heat and hot substances, initial encounter; Y92.89 Other specified places as the place of occurrence of the external cause; Y99.0 Civilian activity done for income or pay
CPT/HCPCS: 73220; 80053; 80202; 80307; 81001; 83036; 83605; 83735; 84100; 84439; 84443; 85025; 87040; 87086; 96365; 96368; A9579; J1650; J2270; J2543; J3370; J7030; J7050

== ENCOUNTER 2018-04-19 19:05 | Observation (INO) | payer SELFPAY ==
[~2018-04-19] VITALS: Ht 182.9 cm; Wt 63.6 kg
[2018-04-19 19:55] VITALS: BP 122/56; PULSE 89; RESP 16; TEMP 98.5; O2SAT 100
[2018-04-19] MEDS ORDERED: PIPERACIL-TAZO 3.375 GM PREMIX 50 ML IV ONE (22:15)
[2018-04-19] MEDS ORDERED: VANCOMYCIN INJ 1,000 MG in SODIUM CHLOR 0.9% 250 ML INJ 250 ML IV ONE (22:15)
--- NOTE | 2018-04-19 22:22 | PD ---
HPI Chief Complaint: Skin Problem Time Seen by Provider: 22:06 Travel History International Travel<30 days: No Contact w/Intl Traveler<30days: No Traveled to known affect area: No History of Present Illness HPI 27-year-old male the presents to the ED for evaluation of right hand swelling and pain. Per patient he was released yesterday from the hospital. Apparently patient had a birthday republican for his daughter as well as apparently his grand mother was dying and need to be close to her. Apparently he left AMA yesterday because of this reasons. Patient was admitted to the hospital 3 days ago for evaluation of significant cellulitis with lymphangitis of the right hand and arm. Per patient the infection itself appears to have improved and the swelling has dramatically improved except he continues to have some redness and pain on the knuckle of the right digit. Denies any chest pain or shortness of breath. No fevers chills or sweats. No injury. Patient left AMA so he was not given any medications. Apparently he was seen by the hand surgeon but the hamster did not think that the abscess needed to be drained at the time. No other medical issues. Pain per patient is 6 out of 10. PFSH Past Medical History ADHD: Yes Cancer: No Cardiovascular Problems: Yes (PRE SVT) Diminished Hearing: No Endocrine: No Genitourinary: No Immune Disorder: No Musculoskeletal: No Neurologic: No Psychiatric: Yes (OCD) Respiratory: No Immunizations Current: Yes Tetanus Vaccination: > 5 Years Influenza Vaccination: No Past Surgical History Cardiac Surgery: Yes (PSVT (CRYOABLATION)) Other Surgery: Yes Social History Alcohol Use: Yes Tobacco Use: Yes Substance Use: Yes (MARIJUANA, ) Allergies-Medications (Allergen,Severity, Reaction): Coded Allergies: No Known Allergies (Verified Allergy, Unknown, 04/19/18) Reported Meds & Prescriptions Reported Meds & Active Scripts Active No Active Prescriptions or Reported Medications Review of Systems Except as stated in HPI: all other systems reviewed are Neg Physical Exam Narrative GENERAL: SKIN: Warm and dry. HEAD: Atraumatic. Normocephalic. EYES: Pupils equal and round. No scleral icterus. No injection or drainage. ENT: No nasal bleeding or discharge. Mucous membranes pink and moist. Tongue is midline. No blood deviation. NECK: Trachea midline. No JVD. CARDIOVASCULAR: Regular rate and rhythm. RESPIRATORY: No accessory muscle use. Clear to auscultation. Breath sounds equal bilaterally. GASTROINTESTINAL: Abdomen soft, non-tender, nondistended. Hepatic and splenic margins not palpable. MUSCULOSKELETAL: Extremities without clubbing, cyanosis, or edema. No obvious deformities. Full range of motion of all extremities. Patient does have what appears to be erythema that is blanchable on the dorsal aspect of the right hand. Patient does have a little swelling and erythema noted on the dorsal aspect of the first digit around the PIP joint. No obvious purulence or mass noted. Does appear to be swollen however. Pain with any range of motion of this digit. NEUROLOGICAL: Awake and alert. No obvious cranial nerve deficits. Motor grossly within normal limits. Five out of 5 muscle strength in the arms and legs. Normal speech. PSYCHIATRIC: Appropriate mood and affect; insight and judgment normal. Data Data Last Documented VS Vital Signs Date Time Temp Pulse Resp B/P (MAP) Pulse Ox O2 Delivery O2 Flow Rate FiO2 04/19/18 19:55 98.5 89 16 122/56 (78) 100 Orders Orders Hand, Complete ([id number]) (04/19/18 22:11) Complete Blood Count With Diff (04/19/18 22:11) Basic Metabolic Panel (Bmp) (04/19/18 22:11) C-Reactive Protein (Crp) (04/19/18 22:11) Iv Access Insert/Monitor (04/19/18 22:11) Vancomycin Inj (Vancomycin Inj) (04/19/18 22:15) Piperacil-Tazo 3.375 Gm Premix (Zosyn 3. (04/19/18 22:15) MDM Medical Decision Making Medical Screen Exam Complete: Yes Emergency Medical Condition: Yes Medical Record Reviewed: Yes Differential Diagnosis Cellulitis versus abscess versus noncompliant Narrative Course 27-year-old male the presents to the ED for evaluation of infection to his right hand. Patient was properly examined and was found to have signs and symptoms consistent appears to be cellulitis. Patient left AMA from here yesterday. Labs and imaging ordered. Case will be sent to my attending pending disposition and plan. Scripts No Active Prescriptions or Reported Meds Eric Solorzano Apr 19, 2018 22:22
--- NOTE | 2018-04-19 22:47 | RADRPT ---
EXAM DATE: 04/19/2018 10:34 PM EDT AGE/SEX: 27 years / Male INDICATIONS: Pain. Previous infection in hand recently. CLINICAL DATA: This is the patient's initial encounter. Patient reports that signs and symptoms have been present for 1 day and indicates a pain score of 6/10. MEDICAL/SURGICAL HISTORY: None. . Appendectomy. Cryoablation of heart COMPARISON: No prior exams available for comparison. FINDINGS: Bony structures are intact and in normal alignment. Osseous density is normal. Soft tissues are unre markable. No radiopaque foreign bodies seen. CONCLUSION: Negative examination of the hand. Electronically signed by: Odin Ramirez MD 04/19/2018 10:46 PM EDT
[2018-04-19 22:50] VITALS: BP 117/62; PULSE 80; RESP 16; O2SAT 98
[2018-04-19 22:55] LABS: AUTOMATED NEUTROPHIL # 8.1 TH/MM3 (1.8-7.7); BASOPHIL # 0.1 TH/MM3 (0-0.2); BASOPHIL % 0.5 % (0.0-2.0); EOSINOPHIL # 0.1 TH/MM3 (0-0.4); EOSINOPHIL % 1.3 % (0.0-4.0); HEMATOCRIT 41.7 % (39.0-51.0); HEMOGLOBIN 14.3 GM/DL (13.0-17.0); LYMPH % 14.9 % (9.0-44.0); LYMPHOCYTE # 1.6 TH/MM3 (1.0-4.8); MEAN CELL VOLUME 90.4 FL (80.0-100.0); MEAN CORPUSCULAR HEMOGLOBIN 31.1 PG (27.0-34.0); MEAN CORPUSCULAR HGB CONC 34.4 % (32.0-36.0); MEAN PLATELET VOLUME 7.6 FL (7.0-11.0); MONO % 5.9 % (0.0-8.0); MONOCYTE # 0.6 TH/MM3 (0-0.9); NEUT % 77.4 % (16.0-70.0); PLATELET COUNT 282 TH/MM3 (150-450); RED BLOOD COUNT 4.61 MIL/MM3 (4.50-5.90); RED CELL DISTRIBUTION WIDTH 14.4 % (11.6-17.2); WHITE BLOOD COUNT 10.5 TH/MM3 (4.0-11.0)
[2018-04-19 23:42] LABS: BICARBONATE 27.4 MEQ/L (21.0-32.0); C-REACTIVE PROTEIN 9.87 MG/DL (0.00-0.30); CALCIUM 9.4 MG/DL (8.5-10.1); CREATININE 0.67 MG/DL (0.60-1.30)
[2018-04-20] VITALS: BP 109/58; PULSE 76; RESP 16; O2SAT 99
--- NOTE | 2018-04-20 00:40 | PD ---
Physical Exam Narrative GENERAL: 27-year-old male in no apparent distress SKIN: To back of right hand he has redness and swelling. Most is localized around the base of his right thumb which appears to be abscess-like in appearance. HEAD: Atraumatic. Normocephalic. EYES: Pupils equal and round. ENT: No nasal bleeding or discharge. Mucous membranes pink and moist. NECK: Trachea midline. CARDIOVASCULAR: Regular rate and rhythm. RESPIRATORY: No accessory muscle use. no increased effort MUSCULOSKELETAL: No obvious deformities. No clubbing. No cyanosis, Pain with palpation of right hand, no pain with other joints , neurovascularly intact, compartments soft. NEUROLOGICAL: Awake and alert. Motor grossly within normal limits. Normal speech. Data Data Last Documented VS Vital Signs Date Time Temp Pulse Resp B/P (MAP) Pulse Ox O2 Delivery O2 Flow Rate FiO2 04/20/18 00:00 76 16 109/58 (75) 99 Room Air 04/19/18 19:55 98.5 Orders Orders Hand, Complete ([id number]) (04/19/18 22:11) Complete Blood Count With Diff (04/19/18 22:11) Basic Metabolic Panel (Bmp) (04/19/18 22:11) C-Reactive Protein (Crp) (04/19/18 22:11) Iv Access Insert/Monitor (04/19/18 22:11) Vancomycin Inj (Vancomycin Inj) (04/19/18 22:15) Piperacil-Tazo 3.375 Gm Premix (Zosyn 3. (04/19/18 22:15) Admit Order (Ed Use Only) (04/20/18 00:30) Labs Laboratory Tests Test 04/19/18 22:45 White Blood Count 10.5 TH/MM3 Red Blood Count 4.61 MIL/MM3 Hemoglobin 14.3 GM/DL Hematocrit 41.7 % Mean Corpuscular Volume 90.4 FL Mean Corpuscular Hemoglobin 31.1 PG Mean Corpuscular Hemoglobin Concent 34.4 % Red Cell Distribution Width 14.4 % Platelet Count 282 TH/MM3 Mean Platelet Volume 7.6 FL Neutrophils (%) (Auto) 77.4 % Lymphocytes (%) (Auto) 14.9 % Monocytes (%) (Auto) 5.9 % Eosinophils (%) (Auto) 1.3 % Basophils (%) (Auto) 0.5 % Neutrophils # (Auto) 8.1 TH/MM3 Lymphocytes # (Auto) 1.6 TH/MM3 Monocytes # (Auto) 0.6 TH/MM3 Eosinophils # (Auto) 0.1 TH/MM3 Basophils # (Auto) 0.1 TH/MM3 CBC Comment DIFF FINAL Differential Comment Blood Urea Nitrogen 8 MG/DL Creatinine 0.67 MG/DL Random Glucose 96 MG/DL Calcium Level 9.4 MG/DL Sodium Level 144 MEQ/L Potassium Level 3.9 MEQ/L Chloride Level 108 MEQ/L Carbon Dioxide Level 27.4 MEQ/L Anion Gap 9 MEQ/L Estimat Glomerular Filtration Rate 142 ML/MIN C-Reactive Protein 9.87 MG/DL MDM Supervised Visit with NIKOLE: Yes Interpretation(s) CBC & BMP Diagram 04/19/18 22:45 Calcium Level 9.4 # Last 24 hours Impressions Hand X-Ray 04/19/182210 Signed Impressions: CONCLUSION: Negative examination of the hand. Narrative Course I, Dr. suggs, have reviewed the advance practice practitioner's documentation and am in agreement, met with the patient face to face, made the diagnosis, and the medical decision making was done by me. *My assessment and Findings: 27 y/o male who recently left the hospital AMA without antibiotics. He states the swelling and redness have gotten worse to his right thumb area and he is worried that it is going to get worse. His blood work show no emergent process. X-ray shows no process. Imaging showed abscess but when evaluated by hand surgeon they did not think he had an abscess. Given area has gotten worse in his right thumb area and he has not been on antibiotics and with note noting history of IV drug abuse will place in observation for antibiotics and he will likely need reevaluation by the hand surgeon to make sure he did not develop an abscess that needs drainage. Physician Communication Physician Communication dr davidson to admit Diagnosis Primary Impression: Cellulitis of right hand Admitting Information Admitting Physician Requests: Observation Scripts No Active Prescriptions or Reported Meds Mounika Suggs MD Apr 20, 2018 00:40
[2018-04-20] MEDS ORDERED: Vancomycin Consult Pharmacy 1 EA OTHER SCH (00:45)
[2018-04-20] MEDS ORDERED: METOCLOPRAMIDE HCL 10 MG/2 ML VIAL IV PUSH PRN (00:45)
[2018-04-20] MEDS ORDERED: LACTULOSE SYRUP 20 GM/30 ML CUP PO PRN (00:45)
[2018-04-20] MEDS ORDERED: SODIUM CHLORIDE 0.9% FLUSH 10 ML FLUSH IV FLUSH PRN (00:45)
[2018-04-20] MEDS ORDERED: ACETAMINOPHEN 325 MG TAB PO PRN (00:45)
[2018-04-20] MEDS ORDERED: MORPHINE SULFATE 4 MG/ML INJ IV PUSH PRN (00:45)
[2018-04-20] MEDS ORDERED: MAGNESIUM HYDROXIDE SUSP 30 ML CUP PO PRN (00:45)
[2018-04-20] MEDS ORDERED: ACETAMINOPHEN/HYDROcodone 325 MG/5 MG TAB PO PRN (00:45)
[2018-04-20] MEDS ORDERED: SENNOSIDES 8.6 MG TAB PO PRN (00:45)
[2018-04-20] MEDS ORDERED: BISACODYL 10 MG SUPP RECTAL PRN (00:45)
[2018-04-20 01:00] VITALS: BP 114/67; PULSE 84; RESP 16; O2SAT 99
--- NOTE | 2018-04-20 01:26 | HHI.HP ---
HPI Service [facility] Primary Care Physician No Primary Care Physician Admission Diagnosis hand cellulitis Diagnoses: (1) Hand abscess Diagnosis: Principal (2) IVDU (intravenous drug user) Diagnosis: Principal Travel History International Travel<30 Days: No Contact w/Intl Traveler <30 Da: No Traveled to Known Affected Are: No History of Present Illness This is a 27-year-old male with a PMH of ADHD, Paroxysmal SVT, OCD and IVDU who presented to ER with complaints of right hand swelling and pain. Recent admit for similar complaints, found to have right hand cellulitis, MRI Hand w/ possible abscess, on Vanc/Zosyn per ID w/ eval by Hand Sx, however pt LEFT AMA on 04/19/18. Returns now w/ worsening swelling to right thumb. Has not been on antibiotics since he left the hospital. Denies fever, chills. On arrival, BP 122/56, HR 89, O2 sat 100% RA, Afebrile. WBC normal. Chemistry essentially unremarkable. CRP 9.87. Hand X-ray negative. S/p Vanc/Zosyn in ER. Review of Systems Except as stated in HPI: all other systems reviewed are Neg ROS: 14 point review of systems otherwise negative. Past Family Social History Past Medical History PMH: ADHD, Paroxysmal SVT, OCD and IVDU Past Surgical History PAST SURGICAL HISTORY: Ablation Allergies: Coded Allergies: No Known Allergies (Verified Allergy, Unknown, 04/19/18) Family History PAST FAMILY HISTORY: Reviewed. No h/o DM or CAD Social History PAST SOCIAL HISTORY: Positive for alcohol, tobacco and marijuana. +IVDU Physical Exam Vital Signs Vital Signs Date Time Temp Pulse Resp B/P (MAP) Pulse Ox O2 Delivery O2 Flow Rate FiO2 04/20/18 00:00 76 16 109/58 (75) 99 Room Air 04/19/18 22:50 80 16 117/62 (80) 98 Room Air 04/19/18 19:55 98.5 89 16 122/56 (78) 100 Physical Exam PE: GENERAL: Pleasant young white male in no acute distress. HEENT: PERRLA, EOMI. No scleral icterus or conjunctival pallor. No lid lag or facial droop. CARDIOVASCULAR: Regular rate and rhythm. No obvious murmurs to auscultation. No chest tenderness to palpation. RESPIRATORY: No obvious rhonchi or wheezing. Clear to auscultation. Breath sounds equal bilaterally. GASTROINTESTINAL: Abdomen soft, non-tender, nondistended. BS normal. MUSCULOSKELETAL: Extremities without clubbing, cyanosis, or edema. No obvious deformities. Right hand erythema/edema, +multiple small pustules, right thumb redness/swelling, decreased ROM. Pulses intact. NEUROLOGICAL: Awake, alert and oriented x4. No focal neurologic deficits. Moving both upper and lower extremities spontaneously. Laboratory Laboratory Tests Test 04/19/18 22:45 White Blood Count 10.5 Red Blood Count 4.61 Hemoglobin 14.3 Hematocrit 41.7 Mean Corpuscular Volume 90.4 Mean Corpuscular Hemoglobin 31.1 Mean Corpuscular Hemoglobin Concent 34.4 Red Cell Distribution Width 14.4 Platelet Count 282 Mean Platelet Volume 7.6 Neutrophils (%) (Auto) 77.4 Lymphocytes (%) (Auto) 14.9 Monocytes (%) (Auto) 5.9 Eosinophils (%) (Auto) 1.3 Basophils (%) (Auto) 0.5 Neutrophils # (Auto) 8.1 Lymphocytes # (Auto) 1.6 Monocytes # (Auto) 0.6 Eosinophils # (Auto) 0.1 Basophils # (Auto) 0.1 CBC Comment DIFF FINAL Differential Comment Blood Urea Nitrogen 8 Creatinine 0.67 Random Glucose 96 Calcium Level 9.4 Sodium Level 144 Potassium Level 3.9 Chloride Level 108 Carbon Dioxide Level 27.4 Anion Gap 9 Estimat Glomerular Filtration Rate 142 C-Reactive Protein 9.87 Result Diagram: 04/19/18224404/19/182244 Caprini VTE Risk Assessment Caprini VTE Risk Assessment: No/Low Risk (score <= 1) Caprini Risk Assessment Model Point Value = 1 Point Value = 2 Point Value = 3 Point Value = 5 Age 41-60 Minor surgery BMI > 25 kg/m2 Swollen legs Varicose veins or History of unexplained or recurrent spontaneous Oral contraceptives or hormone replacement Sepsis (< 1 month) Serious lung disease, including pneumonia (< 1 month) Abnormal pulmonary function Acute myocardial infarction Congestive heart failure (< 1 month) History of inflammatory bowel disease Medical patient at bed rest Age 61-74 Arthroscopic surgery Major open surgery (> 45 min) Laparoscopic surgery (> 45 min) Malignancy Confined to bed (> 72 hours) Immobilizing plaster cast Central venous access Age >= 75 History of VTE Family history of VTE Factor V Leiden Prothrombin [id number] Lupus anticoagulant Anticardiolipin antibodies Elevated serum homocysteine Heparin-induced thrombocytopenia Other congenital or acquired thrombophilia Stroke (< 1 month) Elective arthroplasty Hip, pelvis, or leg fracture Acute spinal cord injury (< 1 month) Prophylaxis Regimen Total Risk Factor Score Risk Level Prophylaxis Regimen 0-1 Low Early ambulation 2 Moderate Order ONE of the following: *Sequential Compression Device (SCD) *Heparin 5000 units SQ BID 3-4 Higher Order ONE of the following medications: *Heparin 5000 units SQ TID *Enoxaparin/Lovenox 40 mg SQ daily (WT < 150 kg, CrCl > 30 mL/min) *Enoxaparin/Lovenox 30 mg SQ daily (WT < 150 kg, CrCl > 10-29 mL/min) *Enoxaparin/Lovenox 30 mg SQ BID (WT < 150 kg, CrCl > 30 mL/min) AND/OR *Sequential Compression Device (SCD) 5 or more Highest Order ONE of the following medications: *Heparin 5000 units SQ TID (Preferred with Epidurals) *Enoxaparin/Lovenox 40 mg SQ daily (WT < 150 kg, CrCl > 30 mL/min) *Enoxaparin/Lovenox 30 mg SQ daily (WT < 150 kg, CrCl > 10-29 mL/min) *Enoxaparin/Lovenox 30 mg SQ BID (WT < 150 kg, CrCl > 30 mL/min) AND *Sequential Compression Device (SCD) Assessment and Plan Problem List: (1) Hand abscess ICD Code: L02.519 - Cutaneous abscess of unspecified hand (2) IVDU (intravenous drug user) ICD Code: F19.90 - Other psychoactive substance use, unspecified, uncomplicated Assessment and Plan A/P: 1. Hand Abscess: Right. Recent admit 04/16/18 for similar, MRI Hand 04/17/18 w / likely abscess of thumb extending into first metacarpal, images reviewed. Consult Hand Sx for evaluation/intervention. Continue Vanc/Zosyn, follow up cultures, IVF for hydration, consult ID for further eval as needed. 2. IVDU: Pt counselled. Ativan prn as needed. 3. DVT Prophylaxis: SCD/Teds 4. Social work for d/c planning as needed 5. Case discussed w/ ER physician at length, labs/records/imaging reviewed by me. Paula Salas MD Apr 20, 2018 01:26
[2018-04-20] MEDS ORDERED: VANCOMYCIN 500 MG/NS 100 ML IV SCH ×2 (02:00)
[2018-04-20] MEDS: PIPERACIL-TAZO 4.5 GM PREMIX 100 ML IV SCH ×2 (03:31→08:31)
[2018-04-20 04:30] VITALS: BP 118/60; PULSE 61; RESP 16; O2SAT 98
[2018-04-20] MEDS: SODIUM CHLOR 0.9% 1000 ML INJ 1,000 ML IV SCH ×3 (06:12→20:44)
[2018-04-20] MEDS: DOCUSATE SODIUM 50 MG/SENNA 8.6 MG TAB PO SCH ×2 (08:31→21:00)
[2018-04-20] MEDS: SODIUM CHLORIDE 0.9% FLUSH 10 ML FLUSH IV FLUSH SCH (08:32)
[2018-04-20] MEDS: VANCOMYCIN INJ 1,250 MG in SODIUM CHLOR 0.9% 250 ML INJ 250 ML IV SCH ×2 (09:18→17:35)
--- NOTE | 2018-04-20 10:47 | RADRPT ---
EXAM DATE: 04/20/2018 10:44 AM EDT AGE/SEX: 27 years / Male INDICATIONS: Right thumb pain and swelling. CLINICAL DATA: This is the patient's initial encounter. Patient reports that signs and symptoms have been present for 4 - 6 days and indicates a pain score of 5/10. Location: Laterality: MEDICAL/SURGICAL HISTORY: . Paroxysmal supraventricular tachycardia.IV drug use. . Cardiac abl ation. COMPARISON: No prior exams available for comparison. No external comparison. FINDINGS: Targeted sonogram right thumb demonstrates extensive soft tissue swelling with increased vascularity. No fluid collection or abscess. CONCLUSION: 1. Extensive soft tissue swelling right thumb without abscess. Electronically signed by: Shreyas Bustamante MD 04/20/2018 10:46 AM EDT
[2018-04-20] MEDS ORDERED: PRED10PA PO (11:11)
[2018-04-20] MEDS ORDERED: DIPR0.053 TOPICAL (11:11)
--- NOTE | 2018-04-20 11:12 | PD.PLAS.PN ---
Subjective Remarks Ultrasound update Vital Signs Date Time Temp Pulse Resp B/P (MAP) Pulse Ox O2 Delivery O2 Flow Rate FiO2 04/20/18 04:30 61 16 118/60 (79) 98 Room Air 04/20/18 01:00 84 16 114/67 (83) 99 Room Air 04/20/18 00:00 76 16 109/58 (75) 99 Room Air 04/19/18 22:50 80 16 117/62 (80) 98 Room Air 04/19/18 19:55 98.5 89 16 122/56 (78) 100 I/O 04/19/18 04/19/18 04/19/18 04/20/18 04/20/18 04/20/18 07:00 15:00 23:00 07:00 15:00 23:00 Intake Total 500 ml Balance 500 ml Intake IV Total 500 ml Laboratory Tests Test 04/19/18 22:45 White Blood Count 10.5 Red Blood Count 4.61 Hemoglobin 14.3 Hematocrit 41.7 Mean Corpuscular Volume 90.4 Mean Corpuscular Hemoglobin 31.1 Mean Corpuscular Hemoglobin Concent 34.4 Red Cell Distribution Width 14.4 Platelet Count 282 Mean Platelet Volume 7.6 Neutrophils (%) (Auto) 77.4 Lymphocytes (%) (Auto) 14.9 Monocytes (%) (Auto) 5.9 Eosinophils (%) (Auto) 1.3 Basophils (%) (Auto) 0.5 Neutrophils # (Auto) 8.1 Lymphocytes # (Auto) 1.6 Monocytes # (Auto) 0.6 Eosinophils # (Auto) 0.1 Basophils # (Auto) 0.1 CBC Comment DIFF FINAL Differential Comment Blood Urea Nitrogen 8 Creatinine 0.67 Random Glucose 96 Calcium Level 9.4 Sodium Level 144 Potassium Level 3.9 Chloride Level 108 Carbon Dioxide Level 27.4 Anion Gap 9 Estimat Glomerular Filtration Rate 142 C-Reactive Protein 9.87 Result Diagram: 04/19/18224404/19/182244 Exam Findings Ultrasound negative for abscess. Plan Impression: Cellulitis relapse secondary to non-compliance. Plan: IV antibiotics. Julita Shrestha MD Apr 20, 2018 11:12
--- NOTE | 2018-04-20 11:34 | MB ---
cc: Julita Shrestha MD DATE: 04/20/2018 REQUESTING PHYSICIAN: Patient is being seen at the request of Dr. Paula Salas. REASON FOR CONSULTATION: Hand abscess. HISTORY OF PRESENT ILLNESS: The patient is a 27-year-old male who was admitted recently on 04/16/2018 for a similar complaint. At that time, he had a diagnosis of a right hand cellulitis secondary to a burn. An MRI was suspicious for an abscess over the thumb. Examination at the time failed to reveal any evidence of an abscess. The patient left A on 04/19/2018 and has not been taking any antibiotics since that time. He now returns complaining that the swelling is worse to his right thumb. Consultation is requested regarding evaluation and treatment of his right thumb. PAST MEDICAL HISTORY: Negative except as noted above. The medical history has not changed over the last 2-3 days since he was admitted. PHYSICAL EXAMINATION: GENERAL: The patient is lying comfortably on the stretcher. VITAL SIGNS: Temperature is 98.5, pulse is 61, respirations are 16, blood pressure is 118/60 and his pulse oximetry is 98 on room air. HEENT: His extraocular muscles are intact. His pupils are equal, round and reactive to light. His mouth is clear. NECK: Supple without masses. LUNGS: Clear. HEART: Regular rate and rhythm. EXTREMITIES: Examination of his upper extremities reveals some swelling over the dorsal aspect of his right thumb. Again today, I do not appreciate the presence of an abscess. There is swelling. There is some slight tenderness, but there is no focal tenderness. The patient's range of motion is slightly diminished from the last time he was here. LABORATORY DATA: Reveals a white count of 10.5 with 77.4% neutrophils, which is slightly elevated. His white count prior to admission on 04/18/2018 was 9.7 and the absolute number of neutrophils are 7.4, 75.9%, so he does have a slight increase. IMPRESSION: The patient to me has continued cellulitis with swelling over his right thumb. PLAN: I have asked the ER physician to order an ultrasound in order to evaluate the possibility of the abscess. Julita Shrestha MD [facility] , 11:07 AM , 11:31 AM
--- NOTE | 2018-04-20 14:36 | PD.ID.CON ---
History of Present Illness Service Infectious disease Consult Requested By Reason for Consult Evaluation and management of right hand infection Primary Care Physician No Primary Care Physician Diagnoses: History of Present Illness is a 27 y/o CM with no significant PMHx presents to the emergency department for evaluation of swelling of his right hand. The patient reports that approximately 3 days ago he burned himself on the oven at work. He states that since that time his hand has become more red and swollen and now has red streaks going up his arm towards his axilla. Patient was admitted to the hospital received Zosyn IV as well as vancomycin IV. Patient underwent an MRI which showed fluid collection. Patient was subsequently evaluated by hand surgery and they believe that this fluid collection was just from inflammation did not think this was an abscess that needed drainage is clinically patient had improved and was able to flex his fingers of his hand. Of note when he was discharged he mentioned that it was his daughter's birthday and now the nurse tells me that he had to leave the hospital the last time because his grandmother . He endorses subjective, severe fever/chills. No chest pain or shortness of breath. No cough. No abdominal pain. No nausea/vomiting/diarrhea. denies any prior endocarditis, discitis or epidural abscesses. ID consulted for evaluation and Mment of right hand abscess and cellulitis possible tendinitis. Review of Systems ROS Limitations: Poor Historian Past Family Social History Allergies: Coded Allergies: No Known Allergies (Verified Allergy, Unknown, 04/19/18) Past Medical History Cardiac ablation for unspecified tachycardia IVDA Past Surgical History none per patient. Reported Medications Reported Meds & Active Scripts Active Active Ordered Medications Current Medications Medications (Trade) Dose Ordered Sig/Mak Route Start Time Stop Time Status Last Admin Pharmacy Profile Note 0 ml @ 0 mls/hr UNSCH OTHER 04/20/18 00:45 Piperacillin Sod/ Tazobactam Sod 100 ml @ 200 mls/hr Q6H IV 04/20/18 04:00 04/20/18 08:31 Sodium Chloride 1,000 ml @ 100 mls/hr Q10H IV 04/20/18 00:44 04/20/18 06:12 (NS Flush) 2 ml UNSCH PRN IV FLUSH 04/20/18 00:45 (NS Flush) 2 ml BID IV FLUSH 04/20/18 09:00 04/20/18 08:32 (Reglan Inj) 5 mg Q6H PRN IV PUSH 04/20/18 00:45 (Tylenol) 650 mg Q6H PRN PO 04/20/18 00:45 ([place] 5-325 Mg) 1 tab Q4H PRN PO 04/20/18 00:45 (Morphine Inj) 2 mg Q3H PRN IV PUSH 04/20/18 00:45 (Valeri-Colace) 1 tab BID PO 04/20/18 09:00 (Milk Of Magnesia Liq) 30 ml Q12H PRN PO 04/20/18 00:45 (Senokot) 17.2 mg Q12H PRN PO 04/20/18 00:45 (Dulcolax Supp) 10 mg DAILY PRN RECTAL 04/20/18 00:45 (Lactulose Liq) 30 ml DAILY PRN PO 04/20/18 00:45 Vancomycin HCl 1250 mg/Sodium Chloride 262.5 ml @ 250 mls/hr Q8H IV 04/20/18 10:00 04/20/18 09:18 ([facility] Ordered Lab Info) SPECIFIC LAB TO BE DRAWN:VANCOMYCIN TROUGH DATE TO... ONCE ONCE .XX 04/21/18 09:45 04/21/18 09:46 ([place] 10-325 Mg) 1 tab Q6H PRN PO 04/20/18 15:45 Family History reviewed. Social History IVDA. Physical Exam Vital Signs Vital Signs Date Time Temp Pulse Resp B/P (MAP) Pulse Ox O2 Delivery O2 Flow Rate FiO2 04/20/18 04:30 61 16 118/60 (79) 98 Room Air 04/20/18 01:00 84 16 114/67 (83) 99 Room Air 04/20/18 00:00 76 16 109/58 (75) 99 Room Air 04/19/18 22:50 80 16 117/62 (80) 98 Room Air 04/19/18 19:55 98.5 89 16 122/56 (78) 100 Physical Exam GENERAL: This is a well-nourished, well-developed patient, in no apparent distress. SKIN: No rashes, ecchymoses or lesions. Cool and dry. HEAD: Atraumatic. Normocephalic. No temporal or scalp tenderness. EYES: Pupils equal round and reactive. Extraocular motions intact. No scleral icterus. No injection or drainage. ENT: Nose without bleeding, purulent drainage or septal hematoma. Throat without erythema, tonsillar hypertrophy or exudate. Uvula midline. Airway patent. NECK: Trachea midline. Supple, nontender, no meningeal signs. CARDIOVASCULAR: HS audible. RESPIRATORY: Clear to auscultation. Breath sounds equal bilaterally. No wheezes , rales, or rhonchi. GASTROINTESTINAL: Abdomen soft, non-tender, nondistended. MUSCULOSKELETAL: Right hand fingers improved, thumb with swelling, induration, and erythema. Able to flex fingers. NEUROLOGICAL: Awake and alert. Non focal Psych cooperative. IV line sites with no e.o infection. Laboratory Laboratory Tests Test 04/19/18 22:45 White Blood Count 10.5 Red Blood Count 4.61 Hemoglobin 14.3 Hematocrit 41.7 Mean Corpuscular Volume 90.4 Mean Corpuscular Hemoglobin 31.1 Mean Corpuscular Hemoglobin Concent 34.4 Red Cell Distribution Width 14.4 Platelet Count 282 Mean Platelet Volume 7.6 Neutrophils (%) (Auto) 77.4 Lymphocytes (%) (Auto) 14.9 Monocytes (%) (Auto) 5.9 Eosinophils (%) (Auto) 1.3 Basophils (%) (Auto) 0.5 Neutrophils # (Auto) 8.1 Lymphocytes # (Auto) 1.6 Monocytes # (Auto) 0.6 Eosinophils # (Auto) 0.1 Basophils # (Auto) 0.1 CBC Comment DIFF FINAL Differential Comment Blood Urea Nitrogen 8 Creatinine 0.67 Random Glucose 96 Calcium Level 9.4 Sodium Level 144 Potassium Level 3.9 Chloride Level 108 Carbon Dioxide Level 27.4 Anion Gap 9 Estimat Glomerular Filtration Rate 142 C-Reactive Protein 9.87 Result Diagram: 04/19/18224404/19/182244 Imaging Last Impressions Soft Tissue Ultrasound 04/20/18 0000 Signed Impressions: CONCLUSION: 1. Extensive soft tissue swelling right thumb without abscess. Hand X-Ray 04/19/182210 Signed Impressions: CONCLUSION: Negative examination of the hand. Assessment and Plan Assessment and Plan Right hand infection, abscess. IVDA Recs: Continue Vanco IV target 10-15. DC Zosyn IV Follow cultures Follow clinically. Deidre Gaxiola MD Apr 20, 2018 14:36
[2018-04-20 16:00] VITALS: BP 118/65; PULSE 55; RESP 20; TEMP 97; O2SAT 98
[2018-04-20 20:50] VITALS: BP 116/70; PULSE 67; RESP 16; TEMP 97.8; O2SAT 99
[2018-04-20 23:50] VITALS: BP 118/69; PULSE 59; RESP 18; TEMP 98.7; O2SAT 98
[2018-04-21] MEDS: ACETAMINOPHEN/HYDROcodone 325 MG/10 MG TAB PO PRN ×4 (00:10→23:13)
[2018-04-21] MEDS: VANCOMYCIN INJ 1,250 MG in SODIUM CHLOR 0.9% 250 ML INJ 250 ML IV SCH (04:17)
[2018-04-21 04:38] VITALS: BP 102/58; PULSE 50; RESP 18; TEMP 97.6; O2SAT 99
[2018-04-21] MEDS: SODIUM CHLOR 0.9% 1000 ML INJ 1,000 ML IV SCH ×2 (06:44→15:45)
[2018-04-21 07:59] LABS: AUTOMATED NEUTROPHIL # 4.4 TH/MM3 (1.8-7.7); BASOPHIL % 0.5 % (0.0-2.0); EOSINOPHIL # 0.2 TH/MM3 (0-0.4); HEMATOCRIT 40.2 % (39.0-51.0); HEMOGLOBIN 13.4 GM/DL (13.0-17.0); LYMPH % 28.9 % (9.0-44.0); LYMPHOCYTE # 2.2 TH/MM3 (1.0-4.8); MEAN CELL VOLUME 92.7 FL (80.0-100.0); MEAN CORPUSCULAR HGB CONC 33.4 % (32.0-36.0); MEAN PLATELET VOLUME 7.7 FL (7.0-11.0); MONO % 9.2 % (0.0-8.0); MONOCYTE # 0.7 TH/MM3 (0-0.9); NEUT % 58.4 % (16.0-70.0); PLATELET COUNT 309 TH/MM3 (150-450); RED BLOOD COUNT 4.34 MIL/MM3 (4.50-5.90); RED CELL DISTRIBUTION WIDTH 13.8 % (11.6-17.2); WHITE BLOOD COUNT 7.5 TH/MM3 (4.0-11.0)
[2018-04-21 08:23] LABS: ALKALINE PHOSPHATASE 96 U/L (45-117); ALT (GPT) 25 U/L (12-78); AST (GOT) 9 U/L (15-37); BICARBONATE 23.9 MEQ/L (21.0-32.0); BLOOD UREA NITROGEN 10 MG/DL (7-18); CALCIUM 8.6 MG/DL (8.5-10.1); CHLORIDE 111 MEQ/L (98-107); CREATININE 0.55 MG/DL (0.60-1.30); GLOMERULAR FILTRATION RATE 179 ML/MIN (>89); GLUCOSE,RANDOM 74 MG/DL (74-106); SODIUM (NA) 143 MEQ/L (136-145); TOTAL BILIRUBIN ADULT 0.2 MG/DL (0.2-1.0); TOTAL PROTEIN 6.4 GM/DL (6.4-8.2)
[2018-04-21] MEDS: DOCUSATE SODIUM 50 MG/SENNA 8.6 MG TAB PO SCH ×2 (09:00→21:00)
[2018-04-21] MEDS: SODIUM CHLORIDE 0.9% FLUSH 10 ML FLUSH IV FLUSH SCH ×3 (09:32→23:13)
[2018-04-21] MEDS ORDERED: PHARMACY ORDERED LAB ONE (09:45)
[2018-04-21] MEDS ORDERED: POTASSIUM CHLORIDE 10 MEQ CONTROLLED RELEASE TAB PO ONE (10:00)
--- NOTE | 2018-04-21 13:40 | HHI.PR ---
Subjective Remarks Follow-up on patient with right hand cellulitis. Patient seen and examined. Patient states right hand has improved some. He has noticed mild increase in range of motion in the right thumb with less swelling. Continues to have redness over the majority of the base of the thumb. He reports sweats last night. He denies any nausea, vomiting or abdominal pain. He denies any chest pain or shortness of breath. Objective Vitals Vital Signs Date Time Temp Pulse Resp B/P (MAP) Pulse Ox O2 Delivery O2 Flow Rate FiO2 04/21/18 12:03 17 04/21/18 04:38 97.6 50 18 102/58 (73) 99 04/20/18 23:50 98.7 59 18 118/69 (85) 98 04/20/18 20:50 97.8 67 16 116/70 (85) 99 04/20/18 16:00 97.0 55 20 118/65 (82) 98 I/O 04/20/18 04/20/18 04/20/18 04/21/18 04/21/18 04/21/18 07:00 15:00 23:00 07:00 15:00 23:00 Intake Total 500 ml 500 ml 262.5 ml Output Total 700 ml Balance 500 ml -700 ml 500 ml 262.5 ml Intake Oral 500 ml IV Total 500 ml 262.5 ml Output Urine Total 700 ml # Voids 4 # Bowel Movements 1 Result Diagram: 04/21/18 0620 04/21/18 0620 Imaging Last Impressions Soft Tissue Ultrasound 04/20/18 0000 Signed Impressions: CONCLUSION: 1. Extensive soft tissue swelling right thumb without abscess. Hand X-Ray 04/19/18 2211 Signed Impressions: CONCLUSION: Negative examination of the hand. Objective Remarks GENERAL: Well-developed well-nourished young male patient in no acute distress. Awake and alert. Appears comfortable. SKIN: Warm and dry. No generalized rash. HEENT: PERRLA, EOMI. No scleral icterus or conjunctival pallor. No lid lag or facial droop. CARDIOVASCULAR: Regular rate and rhythm. No obvious murmurs to auscultation. No chest tenderness to palpation. RESPIRATORY: Nonlabored. No obvious rhonchi or wheezing. Clear to auscultation. Breath sounds equal bilaterally. GASTROINTESTINAL: Abdomen soft, non-tender, nondistended. BS normal. MUSCULOSKELETAL: Extremities without clubbing or cyanosis. No obvious deformities. Right hand erythema/edema mostly over the dorsal aspect of the right thumb, slightly decreased erythema over the back of the hand. Decreased range of motion mostly in the right thumb.. Pulses intact. NEUROLOGICAL: Awake, alert and oriented x4. CN II-XII grossly intact. Moving both upper and lower extremities spontaneously. Nonfocal. Normal speech. PSYCHIATRIC: Calm and cooperative. Procedures None A/P Problem List: (1) Hand abscess ICD Code: L02.519 - Cutaneous abscess of unspecified hand (2) IVDU (intravenous drug user) ICD Code: F19.90 - Other psychoactive substance use, unspecified, uncomplicated Assessment and Plan 27-year-old male with a PMH of ADHD, Paroxysmal SVT, OCD and IVDU who presented to ER with complaints of right hand swelling and pain. Patient previously admitted 619 for similar complaints with MRI showing possible abscess, followed by ID and hand surgery on vancomycin and Zosyn left AMA on 04/19. Right hand/thumb cellulitis Recent admit 04/16/18 for similar, MRI Hand 04/17/18 w/ likely abscess of thumb extending into first metacarpal, images reviewed. Right hand US shows extensive soft tissue swelling without abscess -Hand surgery following, appreciate assistance. Nonoperative management at this time. -Infectious disease following, appreciate assistance. Continue vancomycin per ID recommendations. -Monitor for clinical improvement IVDU: Pt counselled. -Ativan prn as needed. Hypokalemia -Oral repletion ordered -Repeat BMP in a.m. to monitor response DVT Prophylaxis: SCD/Teds Discharge Planning Not ready for discharge. Discharge pending ID and hand clearance. Genesis Huynh Apr 21, 2018 13:40
[2018-04-21] MEDS: VANCOMYCIN 1,000 MG/NS 250 ML IV SCH ×4 (14:26→23:41)
[2018-04-21 16:23] VITALS: BP 115/58; PULSE 59; RESP 17; TEMP 97.7; O2SAT 97
[2018-04-21 20:45] VITALS: BP 133/68; PULSE 67; RESP 16; TEMP 97.6; O2SAT 98
[2018-04-22 00:10] VITALS: BP 120/57; PULSE 62; RESP 16; TEMP 98; O2SAT 97
[2018-04-22] MEDS: SODIUM CHLOR 0.9% 1000 ML INJ 1,000 ML IV SCH ×2 (02:44→14:00)
[2018-04-22 04:14] VITALS: BP 111/66; PULSE 47; RESP 16; TEMP 97.3; O2SAT 98
[2018-04-22] MEDS: VANCOMYCIN 1,000 MG/NS 250 ML IV SCH ×4 (07:44→14:12)
[2018-04-22 08:00] VITALS: BP_SYST 115; BP_SYST 119; BP_DIAS 71; BP_DIAS 74; PULSE 45; PULSE 70; RESP 16; TEMP 97.6; O2SAT 95; O2SAT 99
[2018-04-22 08:51] LABS: BICARBONATE 22.3 MEQ/L (21.0-32.0); CALCIUM 9.3 MG/DL (8.5-10.1); CREATININE 0.63 MG/DL (0.60-1.30)
[2018-04-22] MEDS: DOCUSATE SODIUM 50 MG/SENNA 8.6 MG TAB PO SCH (09:00)
--- NOTE | 2018-04-22 09:33 | HHI.PR ---
Subjective Remarks Follow-up on patient with right hand cellulitis. Patient seen and examined. Patient denies any improvement in his right hand in the past 24 hours. States he still has significant stiffness in the right thumb and has very limited range of motion. He denies any fever or chills. Denies any nausea or vomiting. Denies any chest pain or shortness of breath. Objective Vitals Vital Signs Date Time Temp Pulse Resp B/P (MAP) Pulse Ox O2 Delivery O2 Flow Rate FiO2 04/22/18 08:00 97.6 45 16 115/71 (86) 99 04/22/18 04:14 97.3 47 16 111/66 (81) 98 04/22/18 00:15 20 04/22/18 00:10 98.0 62 16 120/57 (78) 97 04/21/18 20:45 97.6 67 16 133/68 (89) 98 04/21/18 16:23 97.7 59 17 115/58 (77) 97 04/21/18 16:16 17 I/O 04/21/18 04/21/18 04/21/18 04/22/18 04/22/18 04/22/18 07:00 15:00 23:00 07:00 15:00 23:00 Intake Total 500 ml 262.5 ml 890 ml 1200 ml Balance 500 ml 262.5 ml 890 ml 1200 ml Intake Oral 500 ml 640 ml 1200 ml IV Total 262.5 ml 250 ml # Voids 4 4 4 # Bowel Movements 1 Result Diagram: 04/21/18 0620 04/22/18 0744 Imaging Last Impressions Soft Tissue Ultrasound 04/20/18 0000 Signed Impressions: CONCLUSION: 1. Extensive soft tissue swelling right thumb without abscess. Hand X-Ray 04/19/18 2211 Signed Impressions: CONCLUSION: Negative examination of the hand. Objective Remarks GENERAL: Well-developed well-nourished young male patient in no acute distress. Awake and alert. Appears comfortable. SKIN: Warm and dry. No generalized rash. HEENT: PERRLA, EOMI. No scleral icterus or conjunctival pallor. No lid lag or facial droop. CARDIOVASCULAR: Regular rate and rhythm. No obvious murmurs to auscultation. No chest tenderness to palpation. RESPIRATORY: Nonlabored. No obvious rhonchi or wheezing. Clear to auscultation. Breath sounds equal bilaterally. GASTROINTESTINAL: Abdomen soft, non-tender, nondistended. BS normal. MUSCULOSKELETAL: Extremities without clubbing or cyanosis. No obvious deformities. Right hand erythema/edema mostly over the dorsal aspect of the right thumb, slightly decreased erythema over the back of the hand. Edema in right thumb improving. Decreased range of motion mostly in the right thumb. Pulses intact. NEUROLOGICAL: Awake, alert and oriented x4. CN II-XII grossly intact. Moving both upper and lower extremities spontaneously. Nonfocal. Normal speech. PSYCHIATRIC: Calm and cooperative. Procedures None A/P Problem List: (1) Hand abscess ICD Code: L02.519 - Cutaneous abscess of unspecified hand (2) IVDU (intravenous drug user) ICD Code: F19.90 - Other psychoactive substance use, unspecified, uncomplicated Assessment and Plan 27-year-old male with a PMH of ADHD, Paroxysmal SVT, OCD and IVDU who presented to ER with complaints of right hand swelling and pain. Patient previously admitted 04/16 for similar complaints with MRI showing possible abscess, followed by ID and hand surgery on vancomycin and Zosyn left AMA on 04/19. Right hand/thumb cellulitis Recent admit 04/16/18 for similar, MRI Hand 04/17/18 w/ likely abscess of thumb extending into first metacarpal, images reviewed. Right hand US shows extensive soft tissue swelling without abscess -Hand surgery following, appreciate assistance. Nonoperative management at this time. -Infectious disease following, appreciate assistance. Continue vancomycin per ID recommendations. ID to reevaluate patient today and give recommendations for further antibiotic management. -Monitor for clinical improvement IVDU: Pt counselled. -Ativan prn as needed. Hypokalemia -resolved s/p repletion DVT Prophylaxis: SCD/Teds Discharge Planning Not ready for discharge. Discharge pending ID clearance/antibiotic recommendations. Genesis Huynh Apr 22, 2018 09:33
[2018-04-22 12:00] VITALS: BP 112/66; PULSE 56; RESP 16; TEMP 97.9; O2SAT 98
[2018-04-22] MEDS: SODIUM CHLORIDE 0.9% FLUSH 10 ML FLUSH IV FLUSH SCH (12:50)
[2018-04-22] MEDS ORDERED: PHARMACY ORDERED LAB ONE (13:45)
[2018-04-22 16:00] VITALS: BP 129/66; PULSE 56; RESP 16; TEMP 97.3; O2SAT 98
--- NOTE | 2018-04-22 18:08 | PD.AMA ---
Against Medical Advice Note Diagnosis: (1) Cellulitis of right hand Discharge Disposition: Against Medical Advice AMA Statement Patient Ti Rodgers has decided to leave the hospital against medical advice. This patient has the capacity to refuse care and understands the risks of leaving, including permanent disability and/or , and has had an opportunity to ask questions about his condition. The patient has been informed that he may return for care at any time, and follow up has been arranged/ advised. Genesis Huynh Apr 22, 2018 18:08
== END 2018-04-22 17:30 | disposition left against medical advice (07) ==
LOC: NEPE 19:05 → NEDA 04-20 00:31 → NEDH 04-20 04:27 → NEPFCDU 04-20 12:30
PROVIDERS: ADMIT Hospitalist; ATTEND Hospitalist
DX: L03.011 Cellulitis of right finger (principal); L02.519 Cutaneous abscess of unspecified hand; M79.641 Pain in right hand; M79.89 Other specified soft tissue disorders; F90.9 Attention-deficit hyperactivity disorder, unspecified type; I47.1 Supraventricular tachycardia; F42.9 Obsessive-compulsive disorder, unspecified; F17.210 Nicotine dependence, cigarettes, uncomplicated; F12.90 Cannabis use, unspecified, uncomplicated; F19.90 Other psychoactive substance use, unspecified, uncomplicated; Z91.19 Patient's noncompliance with other medical treatment and regimen; E87.6 Hypokalemia
CPT/HCPCS: 73130; 76999; 80048; 80053; 80074; 80202; 85025; 86140; 96361; 96365; 96366; 96367; 96375; 99285; G0378; J2270; J2543; J3370; J7030; J7050

== ENCOUNTER 2018-04-23 23:37 | Emergency (ER) | payer SELFPAY ==
[~2018-04-23] VITALS: Ht 182.9 cm; Wt 64.2 kg
[2018-04-23 23:41] VITALS: BP 130/79; PULSE 112; RESP 16; TEMP 98.6; O2SAT 97
[2018-04-24] MEDS ORDERED: DOXY100C PO (02:09)
[2018-04-24] MEDS ORDERED: BACT800T5 PO (02:09)
--- NOTE | 2018-04-24 02:09 | PD ---
HPI Chief Complaint: Skin Problem Time Seen by Provider: 01:54 Travel History International Travel<30 days: No Contact w/Intl Traveler<30days: No Traveled to known affect area: No History of Present Illness HPI The patient is a 27-year-old [id number] male that was admitted to [facility] for cellulitis of the right hand. Ultrasound and other imaging as well as evaluation of the hand by Dr. Shrestha revealed that it was cellulitis and no abscess was present. The patient states she was behind on child support payments and needed to leave yesterday and signed out AMA before his treatment was complete. He states that they were about to put him on oral antibiotics and discharging. I cannot find this note in the [facility] records which I have just reviewed. The patient states that he has hand is not any worse since he left on Sunday, 2 days ago. The patient has an adjustment disorder, history of drug abuse and mood disorder. PFSH Past Medical History ADHD: Yes Cancer: No Cardiovascular Problems: Yes (PRE SVT) Diminished Hearing: No Endocrine: No Genitourinary: No Immune Disorder: No Musculoskeletal: No Neurologic: No Psychiatric: Yes (OCD) Respiratory: No Immunizations Current: Yes Tetanus Vaccination: > 5 Years Past Surgical History Cardiac Surgery: Yes (PSVT (CRYOABLATION)) Other Surgery: Yes Social History Alcohol Use: Yes Tobacco Use: Yes Substance Use: Yes (MARIJUANA, ) Allergies-Medications (Allergen,Severity, Reaction): Coded Allergies: No Known Allergies (Verified Allergy, Unknown, 04/19/18) Reported Meds & Prescriptions Reported Meds & Active Scripts Active No Active Prescriptions or Reported Medications Review of Systems Except as stated in HPI: all other systems reviewed are Neg Physical Exam Narrative GENERAL: Well-nourished, well-developed patient. SKIN: Focused skin assessment warm/dry. HEAD: Normocephalic. EYES: No scleral icterus. No injection or drainage. NECK: Supple, trachea midline. No JVD or lymphadenopathy. CARDIOVASCULAR: Regular rate and rhythm without murmurs, gallops, or rubs. RESPIRATORY: Breath sounds equal bilaterally. No accessory muscle use. GASTROINTESTINAL: Abdomen soft, non-tender, nondistended. MUSCULOSKELETAL: No cyanosis, or edema. There is slight redness around the dorsum of the right thumb without any fluctuance or any evidence of joint infection, it does not hurt for him to flex and extend the first MP joint, extending to an area of about 3 x 2 cm. BACK: Nontender without obvious deformity. No CVA tenderness. Data Data Last Documented VS Vital Signs Date Time Temp Pulse Resp B/P (MAP) Pulse Ox O2 Delivery O2 Flow Rate FiO2 04/23/18 23:41 98.6 112 16 130/79 (96) 97 MDM Medical Decision Making Medical Screen Exam Complete: Yes Emergency Medical Condition: Yes Medical Record Reviewed: Yes Differential Diagnosis Cellulitis resolving, cellulitis worsening, abscess hand Narrative Course The patient does not have an abscess of the hand. The cellulitis is either resolving or staying the same. He will be given oral antibiotics, doxycycline and Septra for 10 days and he should follow-up with a hand surgeon, Dr. Shrestha. Diagnosis Primary Impression: Cellulitis of right hand Med/Other Pt SpecificInfo: Prescription(s) given Scripts Sulfamethoxazole-Trimethoprim (Bactrim DS) 800-160 Mg Tab 1 TAB PO BID for Infection, #20 TAB 0 Refills Prov: Jacoby Baer MD 04/24/18 Doxycycline Hyclate (Doxycycline Hyclate) 100 Mg Cap 100 MG PO BID for Infection, #20 CAP 0 Refills Prov: Jacoby Baer MD 04/24/18 Disposition: 01 DISCHARGE HOME Condition: Stable Jacoby Baer MD Apr 24, 2018 02:09
[2018-04-24] MEDS ORDERED: SULFAMETHOXAZOLE-TRIMETHOPRIM DS 800-160 MG TAB PO ONE (02:15)
[2018-04-24] MEDS ORDERED: DOXYCYCLINE HYCLATE 100 MG CAP PO ONE (02:15)
== END 2018-04-24 02:23 | disposition home or self-care (01) ==
LOC: PHED 23:37
DX: L03.113 Cellulitis of right upper limb (principal); F12.90 Cannabis use, unspecified, uncomplicated; Z72.0 Tobacco use
CPT/HCPCS: 99283